=== PATIENT | female | born 1985 | race Caucasian/White ===

== ENCOUNTER 2016-06-22 14:52 | Emergency (ER) | payer OTHER ==
--- NOTE | 2016-06-22 15:51 | EDDOCDS ---
Physician Documentation [facility] Name: Nicole Cardona Age: 30 yrs Sex: Female : 1985 Arrival Date: 06/22/2016 Time: 14:52 Bed TR1 Private MD: NO PRIMARY PHYSICIAN, . Disposition: 06/22/16 15:43 Discharged to Home/Self Care. Impression: Low back pain. - Condition is Stable. - Discharge Instructions: Chronic Back Pain, Back Pain, Adult, [id number]. - Prescriptions for Robaxin- 750 750 mg Oral Tablet - take 1 tablet by ORAL route every 6 hours As needed; 40 tablet. etodolac 200 mg Oral Capsule - take 1 capsule by ORAL route 3 times per day; 30 capsule. - Medication Reconciliation, Local Pharmacy Hours, Work Release Form - 1 day form. - [facility]; When: Call to arrange an appointment; Reason: Further diagnostic work-up, Recheck today's complaints, Continuance of care, To establish care. - Problem is an acute exacerbation. - Symptoms are unchanged. Historical: - Allergies: no known allergies; - Home Meds: 1. none - PMHx: Depression; Heroine addict; - PSHx: Cesearean Section; - Social history: Smoking status: Patient states was never smoker of tobacco. No barriers to communication noted, The patient speaks fluent Trinidadian, Speaks appropriately for age. - Family history: Not pertinent. - : The pt / caregiver states he / she is not on anticoagulants. Home medication list is obtained from the patient. - Exposure Risk Screening:: None identified. 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 7 in. (170.18 cm) (R); 14:53 Body Mass Index 26.63 (77.11 kg, 170.18 cm) dd6 Signatures: Kelly Valderrama RN RN srm Wolfenden, Danny, PA PA btw Osbaldo, Cherelle, RN RN ttb MTDD
--- NOTE | 2016-06-22 15:51 | EDDOCDS ---
Nurse's Notes [facility] Name: Nicole Cardona Age: 30 yrs Sex: Female : 1985 Arrival Date: 06/22/2016 Time: 14:52 Bed TR1 Private MD: NO PRIMARY PHYSICIAN, . Diagnosis: Low back pain Presentation: 06/22 14:54 Presenting complaint: Patient states: twisted wrong last night and now having lower srm center back pain. pain also down right leg. no injury. Acute neurological deficits are not present. Mechanism of Injury: No Mechanism of Injury. Adult Sepsis Screening: The patient does not have new or worsening altered mentation. Patient's respiratory rate is less than 22. Systolic blood pressure is greater than 100. Patient has a qSOFA score of 0- Negative Sepsis Screen. Suicide/Homicide risk assessment- the patient denies having any suicidal and/or homicidal ideations and does not present with any other emotional, behavioral or mental health complaints. Status: Patient is not a director service or dependent. Transition of care: patient was not received from another setting of care. 14:54 Acuity: MONIQUE Level 4 srm 14:54 Method Of Arrival: Walkin/Carried/Asstd srm 14:56 Presenting complaint: Patient states: pt is 9 weeks . no vaginal bleeding. srm Triage Assessment: 14:56 General: Appears in no apparent distress, Behavior is appropriate for age, cooperative. srm Pain: Pain currently is 5 out of 10 on a pain scale. HIV screening NA for this visit Offered previously. Musculoskeletal: Reports low back pain that radiates down right leg. 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 none - PMHx: Depression; Heroine addict; - PSHx: Cesearean Section; - Social history: Smoking status: Patient states was never smoker of tobacco. No barriers to communication noted, The patient speaks fluent Urdu, Speaks appropriately for age. - Family history: Not pertinent. - : The pt / caregiver states he / she is not on anticoagulants. Home medication list is obtained from the patient. - Exposure Risk Screening:: None identified. Screenin:49 Screening information is obtained from the patient. Fall risk: No risks identified. ttb Assistance ADL's: requires no assistance with activities of daily living. Abuse/DV Screen: The patient / caregiver reports he/she is: not in a situation that causes fear, pain or injury. Nutritional screening: No deficits noted. Advance Directives: Currently, there is no health care proxy. home support is adequate. Assessment: 15:49 Adult Sepsis Screening: The patient does not have new or worsening altered mentation. ttb Patient's respiratory rate is less than 22. Systolic blood pressure is greater than 100. Patient has a qSOFA score of 0- Negative Sepsis Screen. General: Appears in no apparent distress, well nourished, well groomed, Behavior is appropriate for age, cooperative, pleasant. Pain: Location: lower back. Neurological: Level of Consciousness is awake, alert, Denies numbness. Cardiovascular: Chest pain is denied. Respiratory: No deficits noted. Airway is patent Respiratory effort is even, unlabored, Denies cough, shortness of breath. GI: Denies nausea, vomiting, pain. Derm: Skin is normal. Musculoskeletal: Range of motion intact in all extremities. Reports pain in lower back. Injury Description: No known injury. Vital Signs: 14:53 BP 123 / 66; Pulse 76; Resp 18 S; Temp 97.3(O); Pulse Ox 100% on R/A; Weight 77.11 kg; dd6 Height 5 ft. 7 in. (170.18 cm) (R); 14:53 Body Mass Index 26.63 (77.11 kg, 170.18 cm) dd6 Vitals: 14:53 Log In Time: June 22, 2016 at 14:51. dd6 ED Course: 14:52 Patient visited by Nawaf Alcala PCA. dd6 14:52 NO PRIMARY PHYSICIAN, . is Private Physician. dd6 14:52 Patient moved to Waiting dd6 14:53 Patient moved to Pre RCE dd6 14:55 Triage Initiated srm 15:10 Patient moved to Triage 3 ttb 15:30 Danny Davila PA is PHCP. btw 15:31 Eleni Gamboa MD is Attending Physician. btw 15:31 Patient visited by Danny Davila PA. btw 15:42 [facility] is Referral Physician. btw 15:48 Patient moved to TR1 ead 15:49 The patient / caregiver is instructed regarding the plan of care and ED course. Patient ttb has correct armband on for positive identification. 15:49 No IV's were initiated during this patient's visit. No procedures done that require ttb assistance. Order Results: There are currently no results for this order. Outcome: 15:43 Discharge ordered by Provider. btw 15:49 Discharge Assessment: Patient awake, alert and oriented x 3. No cognitive and/or ttb functional deficits noted. Patient verbalized understanding of disposition instructions. Patient awake and alert. patient administered narcotics - no. The following High Risk Discharge criteria are identified: None. Discharged to home ambulatory. Condition: good Condition: stable Condition: improved. Discharge instructions given to patient, Instructed on discharge instructions, follow up and referral plans. medication usage, Demonstrated understanding of instructions, medications, Pt was receptive of discharge instructions/ teaching. Prescriptions given X 2. No special radiology studies were completed. Property :Personal belongings accompany Pt. 15:51 Patient left the ED. ttb Signatures: Kelly Valderrama, RN RN Nawaf Guillaume, DISPLAYER MERCHANDISE DISPLAYER MERCHANDISE dd6 Danny Davila PA PA btw Conner, Teresa, RN RN ttAna Salazar RN RN ead MTDD
--- NOTE | 2016-06-24 16:51 | EDDOCDS ---
Physician Documentation [facility] Name: Nicole Cardona Age: 30 yrs Sex: Female : 1985 Arrival Date: 06/22/2016 Time: 14:52 Bed TR1 Private MD: NO PRIMARY PHYSICIAN, . Disposition: 06/22/16 15:43 Discharged to Home/Self Care. Impression: Low back pain. - Condition is Stable. - Discharge Instructions: Chronic Back Pain, Back Pain, Adult, [id number]. - Prescriptions for Robaxin- 750 750 mg Oral Tablet - take 1 tablet by ORAL route every 6 hours As needed; 40 tablet. etodolac 200 mg Oral Capsule - take 1 capsule by ORAL route 3 times per day; 30 capsule. - Medication Reconciliation, Local Pharmacy Hours, Work Release Form - 1 day form. - Follow up: [facility]; When: Call to arrange an appointment; Reason: Further diagnostic work-up, Recheck today's complaints, Continuance of care, To establish care. - Problem is an acute exacerbation. - Symptoms are unchanged. Historical: - Allergies: no known allergies; - Home Meds: 1. none - PMHx: Depression; Heroine addict; - PSHx: Cesearean Section; - Social history: Smoking status: Patient states was never smoker of tobacco. No barriers to communication noted, The patient speaks fluent Qatari, Speaks appropriately for age. - Family history: Not pertinent. - : The pt / caregiver states he / she is not on anticoagulants. Home medication list is obtained from the patient. - Exposure Risk Screening:: None identified. 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 7 in. (170.18 cm) (R); 14:53 Body Mass Index 26.63 (77.11 kg, 170.18 cm) dd6 MDM: 15:51 [facility] [place] Payment Agreement was scanned into [employer] and attached to record. [facility] 15:51 Financial registration complete. b 06/24 08:29 T-Sheet-- Draft Copy was scanned into [employer] and attached to record. gb Signatures: Kelly Valderrama, RN Helen Ariza, Kevin Reg gb Danny Davila PA PA btw Conner, Teresa, RN RN ttb Beck, Gabriela gjb The chart was reviewed and I authenticate all verbal orders and agree with the evaluation and treatment provided.Attachments: 06/22 15:51 [facility] [place] Payment Agreement gjb 06/24 08:29 T-Sheet-- Draft Copy gb Chart Complete MTDD
--- NOTE | 2016-06-24 16:51 | EDDOCDS ---
Physician Documentation [facility] Name: Nicole Cardona Age: 30 yrs Sex: Female : 1985 Arrival Date: 06/22/2016 Time: 14:52 Bed TR1 Private MD: NO PRIMARY PHYSICIAN, . Disposition: 06/22/16 15:43 Discharged to Home/Self Care. Impression: Low back pain. - Condition is Stable. - Discharge Instructions: Chronic Back Pain, Back Pain, Adult, [id number]. - Prescriptions for Robaxin- 750 750 mg Oral Tablet - take 1 tablet by ORAL route every 6 hours As needed; 40 tablet. etodolac 200 mg Oral Capsule - take 1 capsule by ORAL route 3 times per day; 30 capsule. - Medication Reconciliation, Local Pharmacy Hours, Work Release Form - 1 day form. - Follow up: [facility]; When: Call to arrange an appointment; Reason: Further diagnostic work-up, Recheck today's complaints, Continuance of care, To establish care. - Problem is an acute exacerbation. - Symptoms are unchanged. Historical: - Allergies: no known allergies; - Home Meds: 1. none - PMHx: Depression; Heroine addict; - PSHx: Cesearean Section; - Social history: Smoking status: Patient states was never smoker of tobacco. No barriers to communication noted, The patient speaks fluent Gabonese, Speaks appropriately for age. - Family history: Not pertinent. - : The pt / caregiver states he / she is not on anticoagulants. Home medication list is obtained from the patient. - Exposure Risk Screening:: None identified. 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 7 in. (170.18 cm) (R); 14:53 Body Mass Index 26.63 (77.11 kg, 170.18 cm) dd6 MDM: 15:51 [facility] [place] Payment Agreement was scanned into [employer] and attached to record. [facility] 15:51 Financial registration complete. b 06/24 08:29 T-Sheet-- Draft Copy was scanned into [employer] and attached to record. gb Signatures: Kelly Valderrama, RN Helen Ariza, Kevin Reg gb Danny Davila PA PA btw Conner, Teresa, RN RN ttb Beck, Gabriela gjb The chart was reviewed and I authenticate all verbal orders and agree with the evaluation and treatment provided.Attachments: 06/22 15:51 [facility] [facility] Payment Agreement gjb 06/24 08:29 T-Sheet-- Draft Copy gb Chart Complete MTDD
--- NOTE | 2016-06-24 16:52 | EDDOCDS ---
Nurse's Notes [facility] Name: Nicole Cardona Age: 30 yrs Sex: Female : 1985 Arrival Date: 06/22/2016 Time: 14:52 Bed TR1 Private MD: NO PRIMARY PHYSICIAN, . Diagnosis: Low back pain Presentation: 06/22 14:54 Presenting complaint: Patient states: twisted wrong last night and now having lower srm center back pain. pain also down right leg. no injury. Acute neurological deficits are not present. Mechanism of Injury: No Mechanism of Injury. Adult Sepsis Screening: The patient does not have new or worsening altered mentation. Patient's respiratory rate is less than 22. Systolic blood pressure is greater than 100. Patient has a qSOFA score of 0- Negative Sepsis Screen. Suicide/Homicide risk assessment- the patient denies having any suicidal and/or homicidal ideations and does not present with any other emotional, behavioral or mental health complaints. 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 Transition of care: patient was not received from another setting of care. 14:54 Acuity: MONIQUE Level 4 srm 14:54 Method Of Arrival: Walkin/Carried/Asstd srm 14:56 Presenting complaint: Patient states: pt is 9 weeks . no vaginal bleeding. srm Triage Assessment: 14:56 General: Appears in no apparent distress, Behavior is appropriate for age, cooperative. srm Pain: Pain currently is 5 out of 10 on a pain scale. HIV screening NA for this visit Offered previously. Musculoskeletal: Reports low back pain that radiates down right leg. 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 none - PMHx: Depression; Heroine addict; - PSHx: Cesearean Section; - Social history: Smoking status: Patient states was never smoker of tobacco. No barriers to communication noted, The patient speaks fluent Nepalese, Speaks appropriately for age. - Family history: Not pertinent. - : The pt / caregiver states he / she is not on anticoagulants. Home medication list is obtained from the patient. - Exposure Risk Screening:: None identified. Screenin:49 Screening information is obtained from the patient. Fall risk: No risks identified. ttb Assistance ADL's: requires no assistance with activities of daily living. Abuse/DV Screen: The patient / caregiver reports he/she is: not in a situation that causes fear, pain or injury. Nutritional screening: No deficits noted. Advance Directives: Currently, there is no health care proxy. home support is adequate. Assessment: 15:49 Adult Sepsis Screening: The patient does not have new or worsening altered mentation. ttb Patient's respiratory rate is less than 22. Systolic blood pressure is greater than 100. Patient has a qSOFA score of 0- Negative Sepsis Screen. General: Appears in no apparent distress, well nourished, well groomed, Behavior is appropriate for age, cooperative, pleasant. Pain: Location: lower back. Neurological: Level of Consciousness is awake, alert, Denies numbness. Cardiovascular: Chest pain is denied. Respiratory: No deficits noted. Airway is patent Respiratory effort is even, unlabored, Denies cough, shortness of breath. GI: Denies nausea, vomiting, pain. Derm: Skin is normal. Musculoskeletal: Range of motion intact in all extremities. Reports pain in lower back. Injury Description: No known injury. Vital Signs: 14:53 BP 123 / 66; Pulse 76; Resp 18 S; Temp 97.3(O); Pulse Ox 100% on R/A; Weight 77.11 kg; dd6 Height 5 ft. 7 in. (170.18 cm) (R); 14:53 Body Mass Index 26.63 (77.11 kg, 170.18 cm) dd6 Vitals: 14:53 Log In Time: June 22, 2016 at 14:51. dd6 ED Course: 14:52 Patient visited by Nawaf Alcala PCA. dd6 14:52 NO PRIMARY PHYSICIAN, . is Private Physician. dd6 14:52 Patient moved to Waiting dd6 14:53 Patient moved to Pre RCE dd6 14:55 Triage Initiated srm 15:10 Patient moved to Triage 3 ttb 15:30 Danny Davila PA is PHCP. btw 15:31 Eleni Gamboa MD is Attending Physician. btw 15:31 Patient visited by Danny Davila PA. btw 15:42 [facility] is Referral Physician. btw 15:48 Patient moved to TR1 ead 15:49 The patient / caregiver is instructed regarding the plan of care and ED course. Patient ttb has correct armband on for positive identification. 15:49 No IV's were initiated during this patient's visit. No procedures done that require ttb assistance. 15:51 [facility] Payment Agreement was scanned into [email or web address] and attached to record. gjb 06/24 08:29 T-Sheet-- Draft Copy was scanned into [email or web address] and attached to record. gb Order Results: There are currently no results for this order. Outcome: 06/22 15:43 Discharge ordered by Provider. btw 15:49 Discharge Assessment: Patient awake, alert and oriented x 3. No cognitive and/or ttb functional deficits noted. Patient verbalized understanding of disposition instructions. Patient awake and alert. patient administered narcotics - no. The following High Risk Discharge criteria are identified: None. Discharged to home ambulatory. Condition: good Condition: stable Condition: improved. Discharge instructions given to patient, Instructed on discharge instructions, follow up and referral plans. medication usage, Demonstrated understanding of instructions, medications, Pt was receptive of discharge instructions/ teaching. Prescriptions given X 2. No special radiology studies were completed. Property :Personal belongings accompany Pt. 15:51 Patient left the ED. ttb Signatures: Kelly Valderrama, RN RN [facility] Helen Howard, Kevin Reg Nawaf Back, HEALTHCARE MARKETER HEALTHCARE MARKETER dd6 Danny Davila PA PA btw Conner, Teresa, RN RN ttb Dunaway, Emily, RN RN ead Beck, Gabriela gjb Chart Complete MTDD
== END 2016-06-22 15:51 | disposition home or self-care (01) ==
LOC: M ED 14:52
DX: O99.89 Other specified diseases and conditions complicating pregnancy, childbirth and the puerperium (principal); M54.5 Low back pain; G89.29 Other chronic pain; O99.341 Other mental disorders complicating pregnancy, first trimester; F32.9 Major depressive disorder, single episode, unspecified; O99.321 Drug use complicating pregnancy, first trimester; F11.20 Opioid dependence, uncomplicated; O99.331 Smoking (tobacco) complicating pregnancy, first trimester; F17.210 Nicotine dependence, cigarettes, uncomplicated; Z3A.09 9 weeks gestation of pregnancy

== ENCOUNTER → 2016-07-01 | Outpatient (REF) | payer OTHER | LOC: M LAB REF 15:39 | PROVIDERS: ATTEND Obstetrics & Gynecology | DX: O34.211 Maternal care for low transverse scar from previous cesarean delivery (principal) ==

== ENCOUNTER 2016-07-11 19:49 | Emergency (ER) | payer OTHER ==
[2016-07-11] MEDS ORDERED: FLUORESCEIN OPHTH 1 MG STRIP As Ordered ONE (21:38)
[2016-07-11] MEDS ORDERED: ACETAMINOPHEN 325 MG TAB As Ordered ONE (21:38)
[2016-07-11] MEDS ORDERED: CIPROFLOXACIN 0.3% OPHTH SOLN 2.5ML As Ordered ONE (21:38)
[2016-07-11] MEDS ORDERED: TETRACAINE 0.5% OPHTH SOLN 4ML As Ordered ONE (21:38)
--- NOTE | 2016-07-11 22:33 | EDDOCDS ---
Nurse's Notes [facility] Name: Nicole Cardona Age: 30 yrs Sex: Female : 1985 Arrival Date: 07/11/2016 Time: 19:49 Bed I1 Private MD: Ricco Zuñiga J Diagnosis: Injury of conjunctiva and corneal abrasion without foreign body, right eye Presentation: 07/11 19:59 Presenting complaint: Patient states: that her R eye got scratched by a dog at work ms18 approx 2 days ago and it has just gotten worse. Pt states that she cannot open it now due to the light causing pain. Mechanism of Injury: dog. The patient reports a positive loss of vision. The patient's loss of vision began today. Adult Sepsis Screening: The patient does not have new or worsening altered mentation. Patient's respiratory rate is less than 22. Systolic blood pressure is greater than 100. Patient has a qSOFA score of 0- Negative Sepsis Screen. Suicide/Homicide risk assessment- the patient denies having any suicidal and/or homicidal ideations and does not present with any other emotional, behavioral or mental health complaints. 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 Transition of care: patient was not received from another setting of care. 19:59 Method Of Arrival: Walkin/Carried/Asstd ms18 19:59 Acuity: MONIQUE Level 3 ms18 Triage Assessment: 20:02 General: Appears in no apparent distress, comfortable, Behavior is appropriate for age, ms18 cooperative. Pain: Location: right eye Pain currently is 7 out of 10 on a pain scale. HIV screening NA for this visit Offered previously. Neurological: No deficits noted. EENT: Reports pain in right eye. Respiratory: Airway is patent Respiratory effort is even, unlabored. Derm: Skin is pink, warm & dry. Bruising that is dark purple, on right eye. 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 Vitamin Oral tab 1 tab once daily - PMHx: Depression; Heroine addict; Anxiety; - PSHx: ; - Social history: Smoking status: Patient uses tobacco products, current every day smoker. No barriers to communication noted, The patient speaks fluent Slovenian. - Family history: Not pertinent. - : The pt / caregiver states he / she is not on anticoagulants. Home medication list is obtained from the patient. - Exposure Risk Screening:: None identified. Screenin:28 Screening information is obtained from the patient. Fall risk: No risks identified. [facility] Assistance ADL's: requires no assistance with activities of daily living. Abuse/DV Screen: The patient / caregiver reports he/she is: not in a situation that causes fear, pain or injury. Nutritional screening: No deficits noted. Advance Directives: There is no active DNR order. home support is adequate. Assessment: 22:28 General: Appears in no apparent distress, comfortable, Behavior is appropriate for age, [facility] cooperative, pleasant, reviewed discharge instructions with patient, encouraged and answered questions, patient denies further needs at this time and declines offer of additional assistance with discharge. Work excuse obtained per patient request and verbal authorization of SHUKRI Ojeda. Vital Signs: 19:50 BP 107 / 63; Pulse 104; Resp 18 S; Temp 98.6; Pulse Ox 98% on R/A; Weight 73.48 kg (R); dd6 Height 5 ft. 7 in. (170.18 cm) (R); 19:50 Body Mass Index 25.37 (73.48 kg, 170.18 cm) dd6 Vitals: 19:50 Log In Time: July 11, 2016 at 19:48. dd6 Visual Acuity: 22:14 Right Eye Visual acuity 20/30, ; Both Eyes Visual acuity 20/30; Without Lenses; patient [facility] states she is legally blind in left eye and can not read eye chart at any level with that eye ED Course: 19:50 Patient visited by Nawaf Alcala PCA. dd6 19:50 Ricco Zuñiga is Private Physician. dd6 19:50 Patient moved to Waiting dd6 19:51 Patient moved to Pre RCE dd6 20:02 Triage Initiated ms18 20:55 Patient moved to Triage 2 ar3 21:10 Danish Sanford [facility] cc10 21:10 David Gage DO is Attending Physician. cc10 21:20 Patient visited by Danish Sanford PA-C. cc10 21:20 Patient visited by Danish Sanford PA-C. cc10 21:27 Patient moved to I10 / 23 [facility] 21:49 Ozzy Yepez is Referral Physician. cc 22:28 The patient / caregiver is instructed regarding the plan of care and ED course. [facility] 22:28 No IV's were initiated during this patient's visit. No procedures done that require [facility] assistance. Administered Medications: 21:45 Drug: Acetaminophen 975 mg [acetaminophen 325 mg tablet (3 tabs)] Route: PO; [facility] 22:10 Drug: Tetracaine (PF) 2 drps [tetracaine HCl (PF) 0.5 % eye drops (2 drps)] {Note: [facility] obtained for provider to administer.} Route: Ophthalmic; Site: right eye; 22:31 Drug: Ciprofloxacin 2 drps [ciprofloxacin 0.3 % eye drops (2 drps)] Route: Ophthalmic; [facility] Site: right eye; Order Results: There are currently no results for this order. Outcome: 21:50 Discharge ordered by Provider. cc 22:28 Discharge Assessment: Patient awake, alert and oriented x 3. No cognitive and/or [facility] functional deficits noted. Patient verbalized understanding of disposition instructions. patient administered narcotics - no. The following High Risk Discharge criteria are identified: None. Discharged to home ambulatory, with family. Condition: good Condition: stable Condition: improved. Discharge instructions given to patient, Instructed on discharge instructions, follow up and referral plans. medication usage, Demonstrated understanding of instructions, medications, Pt was receptive of discharge instructions/ teaching. Prescriptions given X 1. No special radiology studies were completed. Property :Personal belongings accompany Pt. 22:31 Patient left the ED. [facility] Signatures: Nawaf Alcala, RAYMOND MILL OPERATOR RAYMOND MILL OPERATOR dd6 Melly Foy, RAYMOND MILL OPERATOR RAYMOND MILL OPERATOR ar3 Lyly BellamyRN Kathryn Simmons RN RN [facility] Danish Sanford, PA-C PA-C cc10 Rosa Huber RN RN ms18 MTDD
--- NOTE | 2016-07-11 22:33 | EDDOCDS ---
Physician Documentation [facility] Name: Nicole Cardona Age: 30 yrs Sex: Female : 1985 Arrival Date: 07/11/2016 Time: 19:49 Bed I1 Private MD: Ricco Zuñiga J Disposition: 07/11/16 21:50 Discharged to Home/Self Care. Impression: Injury of conjunctiva and corneal abrasion without foreign body, right eye. - Condition is Stable. - Discharge Instructions: Corneal Abrasion. - Prescriptions for ciprofloxacin HCl 0.3 % Ophthalmic drops - instill 1 drop by OPHTHALMIC route every 4 hours for 5 days then 1 drop every 4 hrs while awake for 5 days; 1 bottle. - Medication Reconciliation form. - Follow up: Ozzy Yepez; When: Tomorrow; Reason: Wound/Symptom Recheck, Recheck today's complaints, Worsening of conditions, Continuance of care. - Problem is an ongoing problem. - Symptoms have improved. - Notes: Follow up with Dr. Yepez in the morning. thanks Historical: - Allergies: no known allergies; - Home Meds: 1. Vitamin Oral tab 1 tab once daily - PMHx: Depression; Heroine addict; Anxiety; - PSHx: ; - Social history: Smoking status: Patient uses tobacco products, current every day smoker. No barriers to communication noted, The patient speaks fluent Icelandic. - Family history: Not pertinent. - : The pt / caregiver states he / she is not on anticoagulants. Home medication list is obtained from the patient. - Exposure Risk Screening:: None identified. 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 7 in. (170.18 cm) (R); 19:50 Body Mass Index 25.37 (73.48 kg, 170.18 cm) dd6 Visual Acuity: 22:14 Right Eye Visual acuity 20/30, ; Both Eyes Visual acuity 20/30; Without Lenses; patient [facility] states she is legally blind in left eye and can not read eye chart at any level with that eye MDM: 21:24 Acetaminophen Tablet 975 mg PO once ordered. cc10 21:24 Ciprofloxacin Drops 0.3 % 2 drps Ophthalmic once; right eye ordered. cc10 21:24 Tetracaine (PF) Drops 0.5 % 2 drps Ophthalmic once; right eye ordered. cc10 21:24 Visual Acuity ordered. cc10 21:25 Flouroscein strips to bedside ordered. cc10 Administered Medications: 21:45 Drug: Acetaminophen 975 mg [acetaminophen 325 mg tablet (3 tabs)] Route: PO; [facility] 22:10 Drug: Tetracaine (PF) 2 drps [tetracaine HCl (PF) 0.5 % eye drops (2 drps)] {Note: [facility] obtained for provider to administer.} Route: Ophthalmic; Site: right eye; 22:31 Drug: Ciprofloxacin 2 drps [ciprofloxacin 0.3 % eye drops (2 drps)] Route: Ophthalmic; [facility] Site: right eye; Signatures: Kathryn Lindsay RN RN [facility] Danish Sanford PARashawnC PARashawnC cc Rosa Huber RN RN ms18 [facility]
--- NOTE | 2016-07-13 23:33 | EDDOCDS ---
Physician Documentation [facility] Name: Nicole Cardona Age: 30 yrs Sex: Female : 1985 Arrival Date: 07/11/2016 Time: 19:49 Bed I1 Private MD: Ricco Zuñiga J Disposition: 07/11/16 21:50 Discharged to Home/Self Care. Impression: Injury of conjunctiva and corneal abrasion without foreign body, right eye. - Condition is Stable. - Discharge Instructions: Corneal Abrasion. - Prescriptions for ciprofloxacin HCl 0.3 % Ophthalmic drops - instill 1 drop by OPHTHALMIC route every 4 hours for 5 days then 1 drop every 4 hrs while awake for 5 days; 1 bottle. - Medication Reconciliation form. - Follow up: Ozzy Yepez; When: Tomorrow; Reason: Wound/Symptom Recheck, Recheck today's complaints, Worsening of conditions, Continuance of care. - Problem is an ongoing problem. - Symptoms have improved. - Notes: Follow up with Dr. Yepez in the morning. thanks Historical: - Allergies: no known allergies; - Home Meds: 1. Vitamin Oral tab 1 tab once daily - PMHx: Depression; Heroine addict; Anxiety; - PSHx: ; - Social history: Smoking status: Patient uses tobacco products, current every day smoker. No barriers to communication noted, The patient speaks fluent Vietnamese. - Family history: Not pertinent. - : The pt / caregiver states he / she is not on anticoagulants. Home medication list is obtained from the patient. - Exposure Risk Screening:: None identified. 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 7 in. (170.18 cm) (R); 22:34 BP 104 / 63; Pulse 82; Resp 18; Temp 99.6; Pulse Ox 96% ; Pain 2/10; cjh 19:50 Body Mass Index 25.37 (73.48 kg, 170.18 cm) dd6 Visual Acuity: 22:14 Right Eye Visual acuity 20/30, ; Both Eyes Visual acuity 20/30; Without Lenses; patient [facility] states she is legally blind in left eye and can not read eye chart at any level with that eye MDM: 21:24 Acetaminophen Tablet 975 mg PO once ordered. cc10 21:24 Ciprofloxacin Drops 0.3 % 2 drps Ophthalmic once; right eye ordered. cc10 21:24 Tetracaine (PF) Drops 0.5 % 2 drps Ophthalmic once; right eye ordered. cc10 21:24 Visual Acuity ordered. cc10 21:25 Flouroscein strips to bedside ordered. [facility] 07/12 10:40 T-Sheet-- Draft Copy was scanned into [employer] and attached to record. Administered Medications: 07/11 21:45 Drug: Acetaminophen 975 mg [acetaminophen 325 mg tablet (3 tabs)] Route: PO; [facility] 22:10 Drug: Tetracaine (PF) 2 drps [tetracaine HCl (PF) 0.5 % eye drops (2 drps)] {Note: [facility] obtained for provider to administer.} Route: Ophthalmic; Site: right eye; 22:31 Drug: Ciprofloxacin 2 drps [ciprofloxacin 0.3 % eye drops (2 drps)] Route: Ophthalmic; [facility] Site: right eye; Signatures: Helen Howard, Reg Reg Kathryn Lindsay RN RN [facility] Danish Sanford PA-C PAJewel cc Rosa Huber RN RN ms18 The chart was reviewed and I authenticate all verbal orders and agree with the evaluation and treatment provided.Attachments: 07/12 10:40 T-Sheet-- Draft Copy Chart Complete MTDD
--- NOTE | 2016-07-13 23:33 | EDDOCDS ---
Physician Documentation [facility] Name: Nicole Cardona Age: 30 yrs Sex: Female : 1985 Arrival Date: 07/11/2016 Time: 19:49 Bed I1 Private MD: Ricco Zuñiga J Disposition: 07/11/16 21:50 Discharged to Home/Self Care. Impression: Injury of conjunctiva and corneal abrasion without foreign body, right eye. - Condition is Stable. - Discharge Instructions: Corneal Abrasion. - Prescriptions for ciprofloxacin HCl 0.3 % Ophthalmic drops - instill 1 drop by OPHTHALMIC route every 4 hours for 5 days then 1 drop every 4 hrs while awake for 5 days; 1 bottle. - Medication Reconciliation form. - Follow up: Ozzy Yepez; When: Tomorrow; Reason: Wound/Symptom Recheck, Recheck today's complaints, Worsening of conditions, Continuance of care. - Problem is an ongoing problem. - Symptoms have improved. - Notes: Follow up with Dr. Yepez in the morning. thanks Historical: - Allergies: no known allergies; - Home Meds: 1. Vitamin Oral tab 1 tab once daily - PMHx: Depression; Heroine addict; Anxiety; - PSHx: ; - Social history: Smoking status: Patient uses tobacco products, current every day smoker. No barriers to communication noted, The patient speaks fluent Yoruba. - Family history: Not pertinent. - : The pt / caregiver states he / she is not on anticoagulants. Home medication list is obtained from the patient. - Exposure Risk Screening:: None identified. 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 7 in. (170.18 cm) (R); 22:34 BP 104 / 63; Pulse 82; Resp 18; Temp 99.6; Pulse Ox 96% ; Pain 2/10; cjh 19:50 Body Mass Index 25.37 (73.48 kg, 170.18 cm) dd6 Visual Acuity: 22:14 Right Eye Visual acuity 20/30, ; Both Eyes Visual acuity 20/30; Without Lenses; patient [facility] states she is legally blind in left eye and can not read eye chart at any level with that eye MDM: 21:24 Acetaminophen Tablet 975 mg PO once ordered. cc10 21:24 Ciprofloxacin Drops 0.3 % 2 drps Ophthalmic once; right eye ordered. cc10 21:24 Tetracaine (PF) Drops 0.5 % 2 drps Ophthalmic once; right eye ordered. cc10 21:24 Visual Acuity ordered. cc10 21:25 Flouroscein strips to bedside ordered. [facility] 07/12 10:40 T-Sheet-- Draft Copy was scanned into [employer] and attached to record. Administered Medications: 07/11 21:45 Drug: Acetaminophen 975 mg [acetaminophen 325 mg tablet (3 tabs)] Route: PO; [facility] 22:10 Drug: Tetracaine (PF) 2 drps [tetracaine HCl (PF) 0.5 % eye drops (2 drps)] {Note: [facility] obtained for provider to administer.} Route: Ophthalmic; Site: right eye; 22:31 Drug: Ciprofloxacin 2 drps [ciprofloxacin 0.3 % eye drops (2 drps)] Route: Ophthalmic; [facility] Site: right eye; Signatures: Helen Howard, Reg Reg Kathryn Lindsay RN RN [facility] Danish Sanford PA-C PAJewel cc Rosa Huber RN RN ms18 The chart was reviewed and I authenticate all verbal orders and agree with the evaluation and treatment provided.Attachments: 07/12 10:40 T-Sheet-- Draft Copy Chart Complete MTDD
--- NOTE | 2016-07-13 23:33 | EDDOCDS ---
Nurse's Notes [facility] Name: Nicole Cardona Age: 30 yrs Sex: Female : 1985 Arrival Date: 07/11/2016 Time: 19:49 Bed I1 Private MD: Ricco Zuñiga J Diagnosis: Injury of conjunctiva and corneal abrasion without foreign body, right eye Presentation: 07/11 19:59 Presenting complaint: Patient states: that her R eye got scratched by a dog at work ms18 approx 2 days ago and it has just gotten worse. Pt states that she cannot open it now due to the light causing pain. Mechanism of Injury: dog. The patient reports a positive loss of vision. The patient's loss of vision began today. Adult Sepsis Screening: The patient does not have new or worsening altered mentation. Patient's respiratory rate is less than 22. Systolic blood pressure is greater than 100. Patient has a qSOFA score of 0- Negative Sepsis Screen. Suicide/Homicide risk assessment- the patient denies having any suicidal and/or homicidal ideations and does not present with any other emotional, behavioral or mental health complaints. 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 Transition of care: patient was not received from another setting of care. 19:59 Method Of Arrival: Walkin/Carried/Asstd ms18 19:59 Acuity: MONIQUE Level 3 ms18 Triage Assessment: 20:02 General: Appears in no apparent distress, comfortable, Behavior is appropriate for age, ms18 cooperative. Pain: Location: right eye Pain currently is 7 out of 10 on a pain scale. HIV screening NA for this visit Offered previously. Neurological: No deficits noted. EENT: Reports pain in right eye. Respiratory: Airway is patent Respiratory effort is even, unlabored. Derm: Skin is pink, warm & dry. Bruising that is dark purple, on right eye. 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 Vitamin Oral tab 1 tab once daily - PMHx: Depression; Heroine addict; Anxiety; - PSHx: ; - Social history: Smoking status: Patient uses tobacco products, current every day smoker. No barriers to communication noted, The patient speaks fluent Slovenian. - Family history: Not pertinent. - : The pt / caregiver states he / she is not on anticoagulants. Home medication list is obtained from the patient. - Exposure Risk Screening:: None identified. Screenin:28 Screening information is obtained from the patient. Fall risk: No risks identified. [facility] Assistance ADL's: requires no assistance with activities of daily living. Abuse/DV Screen: The patient / caregiver reports he/she is: not in a situation that causes fear, pain or injury. Nutritional screening: No deficits noted. Advance Directives: There is no active DNR order. home support is adequate. Assessment: 22:28 General: Appears in no apparent distress, comfortable, Behavior is appropriate for age, [facility] cooperative, pleasant, reviewed discharge instructions with patient, encouraged and answered questions, patient denies further needs at this time and declines offer of additional assistance with discharge. Work excuse obtained per patient request and verbal authorization of SHUKRI Ojeda. Vital Signs: 19:50 BP 107 / 63; Pulse 104; Resp 18 S; Temp 98.6; Pulse Ox 98% on R/A; Weight 73.48 kg (R); dd6 Height 5 ft. 7 in. (170.18 cm) (R); 22:34 BP 104 / 63; Pulse 82; Resp 18; Temp 99.6; Pulse Ox 96% ; Pain 2/10; [facility] 19:50 Body Mass Index 25.37 (73.48 kg, 170.18 cm) dd6 Vitals: 19:50 Log In Time: July 11, 2016 at 19:48. dd6 Visual Acuity: 22:14 Right Eye Visual acuity 20/30, ; Both Eyes Visual acuity 20/30; Without Lenses; patient [facility] states she is legally blind in left eye and can not read eye chart at any level with that eye ED Course: 19:50 Patient visited by Nawaf Alcala PCA. dd6 19:50 Ricco Zuñiga is Private Physician. dd6 19:50 Patient moved to Waiting dd6 19:51 Patient moved to Pre RCE dd6 20:02 Triage Initiated ms18 20:55 Patient moved to Triage 2 ar3 21:10 Danish Sanford [facility] cc10 21:10 David Gage DO is Attending Physician. cc10 21:20 Patient visited by Danish Sanford PA-C. cc10 21:20 Patient visited by Danish Sanford PA-C. cc10 21:27 Patient moved to I1 [facility] 21:49 Ozzy Yepez is Referral Physician. [facility] 22:28 The patient / caregiver is instructed regarding the plan of care and ED course. [facility] 22:28 No IV's were initiated during this patient's visit. No procedures done that require [facility] assistance. 07/12 10:40 T-Sheet-- Draft Copy was scanned into [employer] and attached to record. Administered Medications: 07/11 21:45 Drug: Acetaminophen 975 mg [acetaminophen 325 mg tablet (3 tabs)] Route: PO; [facility] 22:10 Drug: Tetracaine (PF) 2 drps [tetracaine HCl (PF) 0.5 % eye drops (2 drps)] {Note: [facility] obtained for provider to administer.} Route: Ophthalmic; Site: right eye; 22:31 Drug: Ciprofloxacin 2 drps [ciprofloxacin 0.3 % eye drops (2 drps)] Route: Ophthalmic; [facility] Site: right eye; Order Results: There are currently no results for this order. Outcome: 21:50 Discharge ordered by Provider. cc 22:28 Discharge Assessment: Patient awake, alert and oriented x 3. No cognitive and/or [facility] functional deficits noted. Patient verbalized understanding of disposition instructions. patient administered narcotics - no. The following High Risk Discharge criteria are identified: None. Discharged to home ambulatory, with family. Condition: good Condition: stable Condition: improved. Discharge instructions given to patient, Instructed on discharge instructions, follow up and referral plans. medication usage, Demonstrated understanding of instructions, medications, Pt was receptive of discharge instructions/ teaching. Prescriptions given X 1. No special radiology studies were completed. Property :Personal belongings accompany Pt. 22:31 Patient left the ED. [facility] Signatures: Helen Howard, Reg Reg gb Nawaf Alcala, PELT SALTER PELT SALTER dd6 Melly Foy, PELT SALTER PELT SALTER ar3 Lyly Bellamy,RN RN pml Kathryn Lindsay RN RN [facility] Danish Sanford PA-C PA-C cc10 Rosa Huber RN RN ms18 Chart Complete MTDD
== END 2016-07-11 22:31 | disposition home or self-care (01) ==
LOC: M ED 19:49
DX: S05.01XA Injury of conjunctiva and corneal abrasion without foreign body, right eye, initial encounter (principal); X58.XXXA Exposure to other specified factors, initial encounter; Y92.89 Other specified places as the place of occurrence of the external cause; Y93.K9 Activity, other involving animal care; Y99.0 Civilian activity done for income or pay; F32.9 Major depressive disorder, single episode, unspecified; F41.9 Anxiety disorder, unspecified; F11.10 Opioid abuse, uncomplicated; F17.200 Nicotine dependence, unspecified, uncomplicated; Z79.899 Other long term (current) drug therapy

== ENCOUNTER 2016-07-14 15:00 | Outpatient (RCR) | payer OTHER | END 2016-07-19 | LOC: M OUTALCOH 15:00 | PROVIDERS: ATTEND Psychiatry & Neurology Psychiatry | DX: F11.20 Opioid dependence, uncomplicated (principal) ==

== ENCOUNTER → 2016-07-26 | Outpatient (REF) | payer OTHER | LOC: M LAB REF 16:30 | PROVIDERS: ATTEND Obstetrics & Gynecology | DX: Z34.81 Encounter for supervision of other normal pregnancy, first trimester (principal) ==

== ENCOUNTER 2016-08-17 09:21 | Emergency (ER) | payer OTHER ==
[~2016-08-17] VITALS: Ht 170.2 cm; Wt 77.1 kg
[2016-08-17] MEDS ORDERED: PRENTAB16 PO (09:47)
[2016-08-17] MEDS ORDERED: ALBUTEROL SULFATE 2.5 MG/0.5 ML INH NEB SOLN INH ONE (10:45)
--- NOTE | 2016-08-17 12:39 | REP ---
Bilateral lower extremity Duplex Doppler venous ultrasound: Real time compression and duplex Doppler interrogation of the bilateral lower extremity deep venous system is performed. Bilaterally, the common femoral, superficial femoral and popliteal veins are fully compressible with transducer pressure and demonstrate normal spontaneous and phasic flow, without evidence of deep venous thrombosis. Impression: No evidence of deep venous thrombosis of the bilateral lower extremity femoral popliteal venous system. Signed by Lucio John MD 08/17/2016 12:30 P
[2016-08-17] MEDS ORDERED: ALBU17IN INH (12:54)
[2016-08-17] MEDS ORDERED: CEPH500T PO (12:54)
[2016-08-17 13:09] VITALS: BP 116/74
== END 2016-08-17 13:13 | disposition home or self-care (01) ==
LOC: M ED 09:21
DX: O99.89 Other specified diseases and conditions complicating pregnancy, childbirth and the puerperium (principal); J02.0 Streptococcal pharyngitis; J04.0 Acute laryngitis; J40 Bronchitis, not specified as acute or chronic; R25.2 Cramp and spasm; Z3A.17 17 weeks gestation of pregnancy; O99.332 Smoking (tobacco) complicating pregnancy, second trimester; Z79.899 Other long term (current) drug therapy

== ENCOUNTER 2016-09-17 07:37 | Emergency (ER) | payer OTHER ==
[~2016-09-17] VITALS: Ht 170.2 cm; Wt 77.1 kg
[~2016-09-17 07:37] MED LIST: ALBU17IN INH; CEPH500T PO; PRENTAB16 PO
[2016-09-17] MEDS ORDERED: ACETAMINOPHEN 325 MG TAB PO ONE (08:45)
--- NOTE | 2016-09-17 09:55 | REP ---
Clinical: Right upper extremity pain . Technique: John scale and color Doppler evaluation using linear high frequency transducer. Findings: Ultrasound examination of the right upper extremity deep venous structures including jugular, subclavian, axillary, brachial, cephalic and basilic veins demonstrate normal compressibility flow and wave patterns in response to respiration and augmentation. There is no evidence for deep venous thrombosis. Impression: No evidence for deep venous thrombosis of the right upper extremity. Signed by Ricco Truong MD 09/17/2016 09:48 A
[2016-09-17 10:01] VITALS: BP 117/69
== END 2016-09-17 10:02 | disposition home or self-care (01) ==
LOC: M ED 08:15
DX: O99.89 Other specified diseases and conditions complicating pregnancy, childbirth and the puerperium (principal); M75.21 Bicipital tendinitis, right shoulder; Z3A.21 21 weeks gestation of pregnancy; X50.1XXA Overexertion from prolonged static or awkward postures, initial encounter; Y92.89 Other specified places as the place of occurrence of the external cause; Y93.89 Activity, other specified; Y99.0 Civilian activity done for income or pay

== ENCOUNTER → 2016-11-09 | Outpatient (CLI) | payer OTHER ==
[2016-11-09 09:47] LABS: MEAN CORPUSCULAR VOLUME 79.5 fl (80.0-96.0); RED CELL DISTRIBUTION WIDTH 13.7 % (11.5-14.5); WHITE BLOOD COUNT 6.3 K/mm3 (4.0-10.0)
== END ==
LOC: M LAB 08:26
PROVIDERS: ATTEND Advanced Practice Midwife
DX: Z34.82 Encounter for supervision of other normal pregnancy, second trimester (principal)

== ENCOUNTER → 2016-12-08 | Outpatient (REF) | payer OTHER | LOC: M LAB REF 13:07 | PROVIDERS: ATTEND Obstetrics & Gynecology | DX: Z3A.33 33 weeks gestation of pregnancy (principal) ==

== ENCOUNTER → 2016-12-22 | Outpatient (REF) | payer OTHER ==
[~2016-12-22] MED LIST changes: +ACET50TA PO; +ZITHTAB PO
== END ==
LOC: M LAB REF 12:22
PROVIDERS: ATTEND Obstetrics & Gynecology
DX: Z34.83 Encounter for supervision of other normal pregnancy, third trimester (principal); Z3A.33 33 weeks gestation of pregnancy

== ENCOUNTER 2016-12-25 17:51 | Outpatient (CLI) | payer OTHER ==
[~2016-12-25] VITALS: Ht 170.2 cm; Wt 89.0 kg
[~2016-12-25 17:51] MED LIST changes: -ACET50TA PO; -ZITHTAB PO
[2016-12-25] MEDS ORDERED: ACET50TA PO (18:03)
[2016-12-25 18:09] VITALS: BP 111/72
[2017-04-24] MEDS ORDERED: ZITHTAB PO (20:22)
== END 2016-12-25 18:50 | disposition home or self-care (01) ==
LOC: M LDO 17:51
PROVIDERS: ATTEND Advanced Practice Midwife
DX: O99.353 Diseases of the nervous system complicating pregnancy, third trimester (principal); G89.29 Other chronic pain; O26.893 Other specified pregnancy related conditions, third trimester; M54.5 Low back pain; Z3A.35 35 weeks gestation of pregnancy; O34.219 Maternal care for unspecified type scar from previous cesarean delivery; O99.323 Drug use complicating pregnancy, third trimester; F19.21 Other psychoactive substance dependence, in remission

== ENCOUNTER 2017-01-17 05:36 | Inpatient (IN) | payer OTHER ==
[~2017-01-17] VITALS: Ht 170.2 cm; Wt 89.4 kg
[2017-01-17] VITALS (7 sets, daily range): BP systolic 98–136; BP diastolic 54–79
[~2017-01-17 05:36] MED LIST changes: +ACET50TA PO
[2017-01-17 06:14] LABS: MEAN CORPUSCULAR HEMOGLOBIN 24.6 pg (27.0-33.0); MEAN CORPUSCULAR HGB CONC 33.8 g/dl (32.0-36.5); MEAN CORPUSCULAR VOLUME 72.9 fl (80.0-96.0); RED CELL DISTRIBUTION WIDTH 14.2 % (11.5-14.5); WHITE BLOOD COUNT 7.6 K/mm3 (4.0-10.0)
[2017-01-17] MEDS ORDERED: LR 1,000 ML IV SCH ×2 (07:00→08:42)
[2017-01-17] MEDS ORDERED: LR 800 ML IV ONE (07:00)
[2017-01-17] MEDS ORDERED: BICITRA 30ML SOLN UDC PO ONE (07:00)
[2017-01-17] MEDS ORDERED: OXYTOCIN INJ 10 UNITS/ML VIAL (J2590) As Ordered ONE ×2 (07:17→08:41)
[2017-01-17] MEDS ORDERED: MORPHINE PRES-FREE INJ 10 MG/10 ML VIAL (J2274) As Ordered ONE (07:23)
[2017-01-17] MEDS ORDERED: MIDAZOLAM INJ 2 MG/2 ML VIAL (J2250) As Ordered ONE ×2 (07:32→08:14)
[2017-01-17] MEDS ORDERED: ONDANSETRON 4MG/2ML VIAL (J2405) IV PRN ×3 (07:48→09:15)
[2017-01-17] MEDS ORDERED: NALBUPHINE HCL 10 MG/ML AMP (J2300) IV PRN ×2 (07:48→09:15)
[2017-01-17] MEDS ORDERED: METOCLOPRAMIDE INJ 10MG/2ML VIAL (J2765) IV PRN (07:48)
[2017-01-17] MEDS ORDERED: NALOXONE INJ 0.4 MG/1 ML VIAL (J2310) IV PRN ×2 (07:48)
[2017-01-17] MEDS ORDERED: fentaNYL 100 MCG/2 ML INJECTION (J3010) As Ordered ONE (08:09)
[2017-01-17] MEDS ORDERED: KETAMINE HCL 200 MG/20 ML VIAL As Ordered ONE (08:11)
[2017-01-17] MEDS ORDERED: PHENYLephrine HCL 500 MCG/5 ML (100MCG/ML) SYRINGE (J2370) As Ordered ONE (08:21)
[2017-01-17 08:25] LABS: CORD GAS ABE A -3.1; CORD GAS HCO3 A 23.4 MEQ/L; CORD GAS O2 SAT A 28.9 %; CORD GAS PCO2 A 47.7 mmHg; CORD GAS PH A 7.309 UNITS; CORD GAS PO2 A 16.2 mmHg; CORD GAS SBC A 20.4 MEQ/L; CORD GAS TCO2 A 24.9 MEQ/L
[2017-01-17 08:26] LABS: CORD GAS ABE V -0.4; CORD GAS HCO3 V 24.7 MEQ/L; CORD GAS O2 SAT V 65.3 %; CORD GAS PCO2 V 42.5 mmHg; CORD GAS PH V 7.383 UNITS; CORD GAS PO2 V 26.4 mmHg; CORD GAS SBC V 23.4 MEQ/L; CORD GAS TCO2 V 26.1 MEQ/L
[2017-01-17] MEDS ORDERED: METHYLERGONOVINE MALEATE 0.2 MG/ML VIAL (J2210) As Ordered ONE (08:34)
[2017-01-17] MEDS ORDERED: dexameTHASONE 4 MG/ML 1ML VIAL (J1100) As Ordered ONE (08:41)
[2017-01-17] MEDS ORDERED: ONDANSETRON 4MG/2ML VIAL (J2405) As Ordered ONE ×2 (08:42→08:44)
[2017-01-17] MEDS ORDERED: MEASLES,MUMPS,RUBELLA VACCINE INJ (MMR-II) (90707) SC SCH (08:45)
[2017-01-17] MEDS ORDERED: RHOGAM 300 MCG (1500 IU) INJ (J2790) IM SCH (08:45)
[2017-01-17] MEDS ORDERED: METHYLERGONOVINE MALEATE 0.2 MG TAB PO PRN (08:45)
[2017-01-17] MEDS ORDERED: MOM 30ML SUSPENSION UDC PO PRN (08:45)
[2017-01-17] MEDS ORDERED: KETOROLAC 30 MG/ML VIAL (J1885) IV SCH (09:00)
[2017-01-17] MEDS ORDERED: METHYLERGONOVINE MALEATE 0.2 MG/ML VIAL (J2210) IM ONE (09:00)
[2017-01-17] MEDS ORDERED: fentaNYL 100 MCG/2 ML INJECTION (J3010) IV PRN (09:15)
[2017-01-17] MEDS: DOCUSATE SODIUM 100 MG CAP PO SCH ×2 (11:17→21:17)
[2017-01-17] MEDS: PRENATAL VITAMINS CHEWABLE TABLET PO SCH (11:17)
[2017-01-17] MEDS: KETOROLAC 30 MG/ML VIAL (J1885) IV SCH ×2 (18:48→23:18)
[2017-01-18 02:23] VITALS: BP 112/77
[2017-01-18] MEDS: KETOROLAC 30 MG/ML VIAL (J1885) IV SCH (05:27)
[2017-01-18 06:38] VITALS: BP 98/57
[2017-01-18 08:03] LABS: MEAN CORPUSCULAR HEMOGLOBIN 24.4 pg (27.0-33.0); MEAN CORPUSCULAR HGB CONC 33.1 g/dl (32.0-36.5); MEAN CORPUSCULAR VOLUME 73.8 fl (80.0-96.0); RED CELL DISTRIBUTION WIDTH 14.2 % (11.5-14.5); WHITE BLOOD COUNT 8.2 K/mm3 (4.0-10.0)
[2017-01-18] MEDS: PRENATAL VITAMINS CHEWABLE TABLET PO SCH (09:00)
[2017-01-18] MEDS: DOCUSATE SODIUM 100 MG CAP PO SCH ×2 (09:00→20:18)
[2017-01-18 10:04] VITALS: BP 110/57
[2017-01-18] MEDS: IBUPROFEN 800 MG TAB PO SCH ×2 (14:42→20:18)
[2017-01-18] MEDS: ACETAMINOPHEN TAB 650MG DOSE (2X325MG) PO PRN (17:37)
[2017-01-18 18:00] VITALS: BP 129/59
--- NOTE | 2017-01-18 22:33 | HPE ---
DATE OF ADMISSION: 01/17/2017 is a 31-year-old female 5, para 2-0-2-2 with a history of two prior sections who is being admitted for elective repeat section at term. The patient also desires permanent tubal sterilization. Her record reviewed, which was essentially unremarkable. She initiated care with us at [facility] at approximately 30 of gestation. Her course unremarkable. lab: Blood type is . Rubella immune, hepatitis negative, HIV negative, GC chlamydia negative, 1-hour sugar testing was within normal limit. Her GBS was negative. PAST MEDICAL HISTORY: Significant for chronic back pain, migraines. PAST SURGICAL HISTORY: section x2 SOCIAL HISTORY: Denies any alcohol or drugs. The patient is an ex drug abuser; was addicted to pain pills and has been clean for the last couple of years. She is a former smoker. FAMILY HISTORY: Significant for lupus. PHYSICAL EXAMINATION ON ADMISSION: HEENT: Grossly within normal limits. Abdomen: Soft, nontender, nondistended. Extremities: No clubbing, cyanosis or edema. Vaginal exam deferred. Tracing reviewed. Category one tracing. ASSESSMENT: 1. Intrauterine at 39 weeks gestation with a history of two prior sections being admitted for elective repeat section. 2. Multiparity, desires permanent tubal sterilization. PLAN: Admit to labor and delivery. Awaiting OR for repeat section. JACINTA
[2017-01-19 04:39] VITALS: BP 101/60
[2017-01-19] MEDS: IBUPROFEN 800 MG TAB PO SCH ×3 (06:01→20:18)
[2017-01-19] MEDS: DOCUSATE SODIUM 100 MG CAP PO SCH ×2 (08:42→20:18)
[2017-01-19] MEDS: PRENATAL VITAMINS CHEWABLE TABLET PO SCH (08:42)
[2017-01-19] MEDS: ACETAMINOPHEN TAB 650MG DOSE (2X325MG) PO PRN ×3 (08:51→23:58)
--- NOTE | 2017-01-19 10:08 | RO ---
DATE OF PROCEDURE: 01/18/2017 PREOPERATIVE DIAGNOSES: 1. Term for elective repeat section. 2. Desires permanent tubal sterilization. POSTOPERATIVE DIAGNOSES: 1. Term for elective repeat section. 2. Desires permanent tubal sterilization. PROCEDURE: 1. Repeat section. 2. Bilateral tubal ligation using Filshie clip. 3. Revision of old scar. SURGEON: Dr. Aron Luo SANDBLAST OR SHOTBLAST EQUIPMENT TENDER: Lore Merrill ANESTHESIA: Spinal. COMPLICATIONS: None. ESTIMATED BLOOD LOSS: 700 mL. FINDINGS: Live female infant in occiput transverse position. 9 and 9. weight 7 pounds 10 ounces. Normal-appearing tubes and ovaries. is a 31-year-old female, 5, para 2-0-2-2, who was admitted at 39 weeks gestation for elective repeat section. The patient was extensively counseled before being taken to the operating room. PROCEDURE: After obtaining informed consent the patient was taken to the operating room where spinal anesthetic was found to be adequate. She was then draped and prepped in usual sterile fashion in the supine position. At this point, an elliptical incision was made over her old scar. This was carried down to the fascia. The fascia was incised in midline fashion. Dissection of the peritoneum was done. At this point, a Mobius skin retractor was placed. A low-transverse uterine incision was made. was delivered in atraumatic fashion. Nose and mouth bulb suctioned. Cord doubly clamped and cut. was handed over to the waiting warmer. Cord blood and cord gas was sent. Placenta removed manually. Uterus cleared of all clot and debris. The uterine incision was then repaired in two separate layers of #0 Vicryl suture. After closing of the uterus, a little excessive bleeding was noted. A dose of Methergine was given intraoperatively as well as Pitocin. The attention was then turned to the fallopian tubes where a Filshie clip was applied 2-3 cm away from the cornual area in each tube. The pelvis copiously irrigated with normal saline and suctioned out. Attention turned to the peritoneum which was closed in running fashion using #2-0 Vicryl. Fascia closed in two separate segments of #0 Vicryl sutures. The skin was reapproximated in subcuticular fashion using #3-0 Vicryl on a Crow. Steri-Strips placed. The patient tolerated procedure well. She was then transferred to recovery room in stable condition.
[2017-01-19 18:03] VITALS: BP 123/67
[2017-01-20] MEDS: IBUPROFEN 800 MG TAB PO SCH (04:20)
[2017-01-20 06:00] VITALS: BP 113/67
[2017-01-20] MEDS: DOCUSATE SODIUM 100 MG CAP PO SCH (08:22)
[2017-01-20] MEDS: PRENATAL VITAMINS CHEWABLE TABLET PO SCH (08:23)
[2017-01-20] MEDS: ACETAMINOPHEN TAB 650MG DOSE (2X325MG) PO PRN (08:24)
--- NOTE | 2017-01-26 14:03 | DS.PDOC ---
Discharge Summary General Date of Admission Jan 17, 2017 at 05:36 Date of Discharge January 20, 2017 Attending Physician: Aron Luo DO Discharge Summary PROCEDURES PERFORMED DURING STAY: Repeat section with bilateral tubal ligation. ADMITTING DIAGNOSES: 1. IUP at 39 weeks gestation 2. Prior section x2 with desire for a repeat section 3. Multiparity with desire for permanent tubal sterilization DISCHARGE DIAGNOSES: 1. Day 3 postoperative COMPLICATIONS/CHIEF COMPLAINT: Hx Section, Req Permanent Sterilization. HISTORY OF PRESENT ILLNESS: Patient is a 31 year old female who is a at 39 weeks gestation with an BRAYAN of 01/24/17. She presents to L&D for a scheduled section, elective. She also desires permanent sterilization. Her care has been uncomplicated. She has a history of drug abuse-opioids and completed treatment programs. She has been clean for over a year. DISCHARGE MEDICATIONS: Please see below. ALLERGIES: Please see below. PHYSICAL EXAMINATION ON DISCHARGE: VITAL SIGNS: Please see below. GENERAL: Alert and attentive. RESPIRATORY EXAMINATION: regular rate. No use of accessory muscles. ABDOMINAL EXAMINATION: Low transverse incision is intact without erythema or drainage. Edges approximated. EXTREMITIES: generalized edema bilateral lower extremities NEUROLOGICAL EXAMINATION: A+Ox3 LABORATORY DATA: Please see below. ACTIVITY: As tolerated and pelvic rest DIET: Regular DISPOSITION: 01 Home, Self-Care. DISCHARGE INSTRUCTIONS: 1. Discharge to home. 2. Follow up in 2 weeks for incision check and 6 weeks for visit. 3. Education done on signs and symptoms of mastitis, endometritis, hemorrhage, DVT, pulmonary embolism, care of incision, signs of infection of incision, pelvic rest, pain management, depression and psychosis, alecia care, and breast care. Patient educated and given a sheet on instructions. DISCHARGE CONDITION: Stable. Vital Signs/I&Os Vital Signs Date Time Temp Pulse Resp B/P (MAP) Pulse Ox O2 Delivery O2 Flow Rate FiO2 01/20/17 06:00 97.0 54 18 113/67 (82) 98 Room Air Discharge Medications Scheduled Multivitamins/ ( Complete 14-0.4 mg) 1 Tab Tab, 1 TAB PO DAILY, (Reported) Scheduled PRN Acetaminophen (Mapap) 500 Mg Tab, 650 MG PO for PAIN SCALE 1-5, (Reported) Allergies Coded Allergies: No Known Allergies (Unverified , 08/17/16) MARIANGEL TURNER CNM Jan 26, 2017 14:02
[2017-04-24] MEDS ORDERED: ZITHTAB PO (20:22)
== END 2017-01-20 11:40 | disposition home or self-care (01) | DRG 540 ==
LOC: M LDI 05:36 → M OBS 10:29
PROVIDERS: ADMIT Obstetrics & Gynecology; ATTEND Obstetrics & Gynecology
PROC: 10D00Z1 Extraction of Products of Conception, Low, Open Approach (ICD-10-PCS; principal; 2017-01-18)
PROC: 0UL70DZ Occlusion of Bilateral Fallopian Tubes with Intraluminal Device, Open Approach (ICD-10-PCS; 2017-01-18)
DX: O34.211 Maternal care for low transverse scar from previous cesarean delivery (principal); Z3A.39 39 weeks gestation of pregnancy; Z37.0 Single live birth; Z30.2 Encounter for sterilization

== ENCOUNTER 2017-03-02 18:43 | Emergency (ER) | payer OTHER ==
[~2017-03-02] VITALS: Ht 170.2 cm; Wt 86.4 kg
[2017-03-02 18:43] VITALS: BP 105/57
[2017-04-24] MEDS ORDERED: ZITHTAB PO (20:22)
== END 2017-03-02 21:49 | disposition left against medical advice (07) ==
LOC: M ED 18:43
DX: R11.10 Vomiting, unspecified (principal); Z53.21 Procedure and treatment not carried out due to patient leaving prior to being seen by health care provider

== ENCOUNTER 2017-08-17 12:25 | Emergency (ER) | payer OTHER ==
[2017-08-17 15:36] LABS: BASO % 0.6 % (0.0-1.0); EOS % 0.4 % (0.0-3.0); HEMATOCRIT 35.9 % (36.0-47.0); HEMOGLOBIN 11.3 g/dl (12.0-16.0); IMMATURE GRANULOCYTE % 0.2 % (0-3.0); LYMPH # 1.8 10^3/uL (1.5-4.5); LYMPH % 35.9 % (24.0-44.0); MEAN CORPUSCULAR HEMOGLOBIN 23.3 pg (27.0-33.0); MEAN CORPUSCULAR HGB CONC 31.5 g/dl (32.0-36.5); MONO # 0.3 10^3/uL (0.0-0.8); MONO % 6.2 % (0.0-5.0); NEUTROPHILS # 2.8 10^3/uL (1.8-7.7); NEUTROPHILS % 56.7 % (36.0-66.0); PLATELET COUNT, AUTOMATED 264 10^3/uL (150-450); RED BLOOD COUNT 4.85 10^6/uL (4.00-5.40); RED CELL DISTRIBUTION WIDTH 17.8 % (11.5-14.5)
[2017-08-17 15:51] LABS: CONTROL LINE HCG INT CTR LINE PRESENT; HCG, SERUM QUALITATIVE NEGATIVE (NEGATIVE)
[2017-08-17 16:03] LABS: ALBUMIN 4.1 GM/DL (3.2-5.2); ALBUMIN/GLOBULIN RATIO 1.28 (1.00-1.93); ALKALINE PHOSPHATASE 70 U/L (45-117); ALT/SGPT 23 U/L (12-78); ANION GAP 5 MEQ/L (8-16); AST/SGOT 16 U/L (7-37); BILIRUBIN,TOTAL 0.6 MG/DL (0.2-1.0); BLOOD UREA NITROGEN 14 MG/DL (7-18); CALCIUM LEVEL 8.9 MG/DL (8.5-10.1); CARBON DIOXIDE LEVEL 28 MEQ/L (21-32); CHLORIDE LEVEL 107 MEQ/L (98-107); CREATININE FOR GFR 0.96 MG/DL (0.55-1.30); GLOMERULAR FILTRATION RATE > 60.0 (>60); GLUCOSE, FASTING 133 MG/DL (70-100); POTASSIUM SERUM 4.2 MEQ/L (3.5-5.1); SODIUM LEVEL 140 MEQ/L (136-145); TOTAL PROTEIN 7.3 GM/DL (6.4-8.2)
[2017-08-17 16:49] LABS: CONTROL LINE INT CTR LINE PRESENT; HIV EXPOSED PT 1 NEGATIVE (NEGATIVE); HIVEXPOSED0 NEGATIVE (NEGATIVE)
[2017-08-17] MEDS: EXPOSURE KIT-ADULT 7 DAY SUPPLY PO (17:51)
[2017-08-17] MEDS: [UNRECOGNIZED DRUG - OTHER] IM (17:51)
[2017-08-17] MEDS: HEPATITIS B IMMUNE GLOBULIN 5ML INJ (J1571) IM (17:52)
[2017-08-18 10:58] LABS: HEPATITIS B SURFACE ANTIBODY NEGATIVE (POSITIVE)
[2017-08-18 11:06] LABS: HEPATITIS B SURFACE ANTIGEN NEGATIVE (NEGATIVE)
== END 2017-08-17 17:54 | disposition home or self-care (01) ==
LOC: M ED 12:25
DX: S61.239A Puncture wound without foreign body of unspecified finger without damage to nail, initial encounter (principal); W46.1XXA Contact with contaminated hypodermic needle, initial encounter; Y92.89 Other specified places as the place of occurrence of the external cause
CPT/HCPCS: 90744

== ENCOUNTER 2017-09-15 14:30 | Emergency (ER) | payer OTHER ==
[2017-09-15] MEDS: NS 1,000 ML IV (15:55)
[2017-09-15] MEDS: METOCLOPRAMIDE INJ 10MG/2ML VIAL (J2765) IV (15:55)
[2017-09-15 16:07] LABS: RED BLOOD COUNT 4.78 10^6/uL (4.00-5.40); WHITE BLOOD COUNT 5.2 10^3/uL (4.0-10.0)
[2017-09-15 16:08] LABS: BASO % 0.4 % (0.0-1.0); EOS % 0.6 % (0.0-3.0); HEMATOCRIT 36.7 % (36.0-47.0); HEMOGLOBIN 11.7 g/dl (12.0-15.5); IMMATURE GRANULOCYTE % 0.6 % (0-3.0); LYMPH # 1.6 10^3/uL (1.5-4.5); LYMPH % 30.4 % (24.0-44.0); MEAN CORPUSCULAR HEMOGLOBIN 24.5 pg (27.0-33.0); MEAN CORPUSCULAR HGB CONC 31.9 g/dl (32.0-36.5); MEAN CORPUSCULAR VOLUME 76.8 fl (80.0-96.0); MONO # 0.4 10^3/uL (0.0-0.8); MONO % 6.7 % (0.0-5.0); NEUTROPHILS # 3.2 10^3/uL (1.8-7.7); NEUTROPHILS % 61.3 % (36.0-66.0); PLATELET COUNT, AUTOMATED 263 10^3/uL (150-450); RED CELL DISTRIBUTION WIDTH 15.9 % (11.5-14.5)
[2017-09-15 16:26] LABS: ALBUMIN 4.1 GM/DL (3.2-5.2); ALBUMIN/GLOBULIN RATIO 1.28 (1.00-1.93); ALKALINE PHOSPHATASE 67 U/L (45-117); ALT/SGPT 21 U/L (12-78); ANION GAP 6 MEQ/L (8-16); AST/SGOT 18 U/L (7-37); BILIRUBIN,TOTAL 0.4 MG/DL (0.2-1.0); BLOOD UREA NITROGEN 17 MG/DL (7-18); CALCIUM LEVEL 9.2 MG/DL (8.5-10.1); CARBON DIOXIDE LEVEL 27 MEQ/L (21-32); CHLORIDE LEVEL 106 MEQ/L (98-107); CREATININE FOR GFR 0.94 MG/DL (0.55-1.30); GLOMERULAR FILTRATION RATE > 60.0 (>60); GLUCOSE, FASTING 79 MG/DL (70-100); POTASSIUM SERUM 3.8 MEQ/L (3.5-5.1); SODIUM LEVEL 139 MEQ/L (136-145); TOTAL PROTEIN 7.3 GM/DL (6.4-8.2)
== END 2017-09-15 17:18 | disposition home or self-care (01) ==
LOC: M ED 14:30
DX: R55 Syncope and collapse (principal); F17.200 Nicotine dependence, unspecified, uncomplicated; Z79.899 Other long term (current) drug therapy
CPT/HCPCS: J2765

== ENCOUNTER → 2018-09-05 | Outpatient (REF) | payer MEDICAID, OTHER ==
[~2018-09-05] MED LIST changes: -ACET50TA PO; +MAPA500T2 PO; +RALT40TA PO; +TRUVTAB PO; +ZITHTAB PO; +ZOFR4TAB14 PO
[2018-09-05 17:47] LABS: INFLUENZA A AMPLIFICATION NEGATIVE (NEGATIVE); INFLUENZA B AMPLIFICATION NEGATIVE (NEGATIVE)
== END ==
LOC: M LAB REF 16:59
PROVIDERS: ATTEND Physician Assistant
DX: J11.1 Influenza due to unidentified influenza virus with other respiratory manifestations (principal)

== ENCOUNTER 2018-09-30 12:32 | Emergency (ER) | payer MEDICAID, OTHER ==
[~2018-09-30] VITALS: Ht 170.2 cm; Wt 72.7 kg
[2018-09-30] MEDS ORDERED: ESCI10TA2 PO (12:36)
[2018-09-30 13:10] LABS: BASO # 0.1 10^3/uL (0.0-0.2); BASO % 0.7 % (0.0-1.0); EOS % 0.3 % (0.0-3.0); HEMATOCRIT 37.7 % (36.0-47.0); HEMOGLOBIN 12.5 g/dl (12.0-15.5); LYMPH # 1.7 10^3/uL (1.5-4.5); LYMPH % 22.9 % (24.0-44.0); MEAN CORPUSCULAR HEMOGLOBIN 26.1 pg (27.0-33.0); MEAN CORPUSCULAR HGB CONC 33.2 g/dl (32.0-36.5); MEAN CORPUSCULAR VOLUME 78.7 fl (80.0-96.0); MONO # 0.5 10^3/uL (0.0-0.8); MONO % 6.9 % (0.0-5.0); NEUTROPHILS % 68.9 % (36.0-66.0); PLATELET COUNT, AUTOMATED 217 10^3/uL (150-450); RED BLOOD COUNT 4.79 10^6/uL (4.00-5.40); WHITE BLOOD COUNT 7.3 10^3/uL (4.0-10.0)
[2018-09-30 13:28] LABS: ERYTHROCYTE SEDIMENTATION RATE 3 mm/hr (0-20)
[2018-09-30 14:13] LABS: ACETAMINOPHEN LEVEL 2.6 UG/ML (10.0-30.0); ALT/SGPT 25 U/L (12-78); AMPHETAMINES LEVEL URINE POSITIVE (NEGATIVE); BARBITURATES URINE NEGATIVE (NEGATIVE); BENZODIAZEPINES URINE NEGATIVE (NEGATIVE); BILIRUBIN,DIRECT 0.1 MG/DL (0.0-0.2); BILIRUBIN,TOTAL 0.5 MG/DL (0.2-1.0); BLOOD UREA NITROGEN 13 MG/DL (7-18); C REACTIVE PROTEIN QUANTITATIV < 0.30 MG/DL (0.00-0.30); CALCIUM LEVEL 8.2 MG/DL (8.5-10.1); CANNABINOIDS URINE NEGATIVE (NEGATIVE); CARBON DIOXIDE LEVEL 26 MEQ/L (21-32); CHLORIDE LEVEL 107 MEQ/L (98-107); COCAINE METABOLITE URINE NEGATIVE (NEGATIVE); CPK CREATINE PHOSPHOKINASE 156 U/L (26-192); CREATININE FOR GFR 0.84 MG/DL (0.55-1.30); ETHYL ALCOHOL (ETHANOL) < 0.003 % (0.000-0.010); GLOMERULAR FILTRATION RATE > 60.0 (>60); GLUCOSE, FASTING 74 MG/DL (70-100); MB/CK RELATIVE INDEX 0.96 (< OR =4); METHADONE URINE NEGATIVE (NEGATIVE); OPIATES URINE NEGATIVE (NEGATIVE); PHENCYCLIDINE URINE NEGATIVE (NEGATIVE); POTASSIUM SERUM 4.2 MEQ/L (3.5-5.1); SALICYLATE LEVEL < 1.7 MG/DL (5.0-30.0); SODIUM LEVEL 140 MEQ/L (136-145); TOTAL PROTEIN 6.9 GM/DL (6.4-8.2); TROPONIN I < 0.02 NG/ML (< 0.10)
[2018-09-30] MEDS ORDERED: [UNRECOGNIZED DRUG - REMARK] PO (14:42)
[2018-09-30 15:02] VITALS: BP 117/76
--- NOTE | 2018-09-30 19:27 | ECGEPIP ---
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
--- NOTE | 2018-10-01 09:31 | REP ---
Head CT without contrast: History: Altered mental status. Comparison study: Comparison CT study September 15, 2017. 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 A Bone window settings demonstrate an intact bony calvarium. There is no evidence of skull fracture or incidental bony calvarial lesion. The visualized paranasal sinuses appear clear. No intraorbital abnormality is seen. On soft tissue window setting images; the lateral, third, and fourth ventricles are normal in size and position. John-white differentiation pattern is normal above and below the tentorium. There are is no evidence of intracranial hemorrhage. No mass, edema, infarction, or midline shift is seen. No extra-axial fluid collection is appreciated. Impression: Negative noncontrast head CT. Electronically Signed by Jose Alfredo Lubin MD 09/30/2018 01:12 P
--- NOTE | 2018-10-01 09:32 | REP ---
Portable chest x-ray: Single view. History: Altered mental status. Comparison study: April 24, 2017. Findings: EKG monitoring electrodes overlie the chest. Lungs are symmetrically aerated and clear. Pleural angles are sharp. Heart size is normal. Pulmonary vasculature is not increased. Impression: No active disease. Electronically Signed by Jose Alfredo Lubin MD 09/30/2018 01:30 P
[2018-10-02 15:03] LABS: ANTINUCLEAR ANTIBODIES DIRECT Negative (Negative)
== END 2018-09-30 15:05 | disposition home or self-care (01) ==
LOC: M ED 12:32
DX: R47.9 Unspecified speech disturbances (principal); F33.9 Major depressive disorder, recurrent, unspecified; F41.9 Anxiety disorder, unspecified; F17.210 Nicotine dependence, cigarettes, uncomplicated; Z79.899 Other long term (current) drug therapy
CPT/HCPCS: 36415; 70450; 71045; 80048; 80076; 80307; 81001; 82140; 82550; 82553; 84443; 85025; 85652; 86038; 86140; 93005; 93041; 94760; 99285; G0480

== ENCOUNTER 2018-10-02 12:31 | Emergency (ER) | payer OTHER ==
[~2018-10-02] VITALS: Ht 170.2 cm; Wt 71.8 kg
[~2018-10-02 12:31] MED LIST changes: +ESCI10TA2 PO; +[UNRECOGNIZED DRUG - REMARK] PO
[2018-10-02 13:24] LABS: BASO # 0.1 10^3/uL (0.0-0.2); BASO % 0.8 % (0.0-1.0); EOS % 0.5 % (0.0-3.0); HEMATOCRIT 39.5 % (36.0-47.0); HEMOGLOBIN 12.9 g/dl (12.0-15.5); LYMPH # 1.6 10^3/uL (1.5-4.5); LYMPH % 23.7 % (24.0-44.0); MEAN CORPUSCULAR HEMOGLOBIN 25.9 pg (27.0-33.0); MEAN CORPUSCULAR HGB CONC 32.7 g/dl (32.0-36.5); MEAN CORPUSCULAR VOLUME 79.3 fl (80.0-96.0); MONO # 0.4 10^3/uL (0.0-0.8); MONO % 6.7 % (0.0-5.0); NEUTROPHILS # 4.5 10^3/uL (1.8-7.7); PLATELET COUNT, AUTOMATED 241 10^3/uL (150-450); RED BLOOD COUNT 4.98 10^6/uL (4.00-5.40); WHITE BLOOD COUNT 6.6 10^3/uL (4.0-10.0)
[2018-10-02 13:38] LABS: INR 0.96; PROTHROMBIN TIME 12.9 SECONDS (12.1-14.4)
[2018-10-02 13:39] LABS: PARTIAL THROMBOPLASTIN TIME 23.4 SECONDS (25.4-37.6)
[2018-10-02 13:42] LABS: HCG, SERUM QUALITATIVE NEGATIVE (NEGATIVE)
[2018-10-02] MEDS ORDERED: ACETAMINOPHEN TAB 650MG DOSE (2X325MG) PO ONE (13:45)
[2018-10-02 13:47] LABS: BLOOD UREA NITROGEN 13 MG/DL (7-18); CALCIUM LEVEL 8.5 MG/DL (8.5-10.1); CARBON DIOXIDE LEVEL 25 MEQ/L (21-32); CHLORIDE LEVEL 108 MEQ/L (98-107); CPK CREATINE PHOSPHOKINASE 89 U/L (26-192); CREATININE FOR GFR 0.81 MG/DL (0.55-1.30); GLOMERULAR FILTRATION RATE > 60.0 (>60); GLUCOSE, FASTING 107 MG/DL (70-100); MB/CK RELATIVE INDEX 1.35 (< OR =4); POTASSIUM SERUM 4.2 MEQ/L (3.5-5.1); SODIUM LEVEL 139 MEQ/L (136-145); TROPONIN I < 0.02 NG/ML (< 0.10)
--- NOTE | 2018-10-02 14:42 | REP ---
Cervical spine two views: AP and lateral projections are performed. There are no comparisons. Vertebral body heights, interspacing alignment are normal. The prevertebral soft tissues are normal. The facets are normally aligned. There is no listhesis. There is a small osteophyte anteriorly inferiorly on the C4 vertebral body compatible with mild degenerative disc disease. Impression: Mild C4-5 degenerative disc disease. Otherwise, negative two-view cervical spine. Electronically Signed by Lucio Alvarenga MD 10/02/2018 02:33 P
[2018-10-02 15:36] LABS: AMPHETAMINES LEVEL URINE NEGATIVE (NEGATIVE); BARBITURATES URINE NEGATIVE (NEGATIVE); BENZODIAZEPINES URINE NEGATIVE (NEGATIVE); CANNABINOIDS URINE NEGATIVE (NEGATIVE); COCAINE METABOLITE URINE NEGATIVE (NEGATIVE); METHADONE URINE NEGATIVE (NEGATIVE); OPIATES URINE NEGATIVE (NEGATIVE); PHENCYCLIDINE URINE NEGATIVE (NEGATIVE)
[2018-10-02] MEDS ORDERED: PROHANCE 279.3MG/ML 15ML VIAL (A9576) As Ordered ONE (19:21)
--- NOTE | 2018-10-02 20:09 | REPVR ---
EXAM: MR Head Without and With Contrast EXAM DATE/TIME: 10/02/2018 7:41 PM CLINICAL HISTORY: 32 years old, female; Screening exam; Patient HX: Facial and arm numbness; Additional info: Facial and arm numbness with confusion TECHNIQUE: Imaging protocol: MR of the head without and with intravenous contrast. Contrast material: prohance Contrast volume: 14 ml Contrast route: angiocath COMPARISON: CT Head without contrast 09/30/2018 12:56 PM FINDINGS: Brain: Foci of T2 lengthening demonstrated in the posterior periventricular white matter, finding is of uncertain significance. Demyelinating disease not excluded. No abnormal enhancement demonstrated. Ventricles: Normal. No ventriculomegaly. Bones/joints: Unremarkable. Soft tissues: Normal. Sinuses: Normal as visualized. No acute sinusitis. Mastoid air cells: Normal as visualized. No mastoid effusion. Orbits: Unremarkable. IMPRESSION: Foci of T2 lengthening demonstrated in the posterior periventricular white matter, finding is of uncertain significance. Demyelinating disease not excluded. No abnormal enhancement demonstrated. Electronically signed by: Josue Ozuna On 10/02/2018 20:08:37 PM
[2018-10-02 20:52] VITALS: BP 116/70
--- NOTE | 2018-10-02 21:38 | ECGEPIP ---
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
--- NOTE | 2018-10-03 14:29 | ED PDOC ---
Post-Departure Follow-Up dr lombardo faxed formal report of mri brain for fu Nicky Lewis MD Oct 03, 2018 14:29
[2018-10-04 00:06] LABS: Lyme Disease IgG/IgM Antibodie <0.91 ISR (0.00-0.90); Lyme Disease IgM Ab Quantitati <0.80 index (0.00-0.79)
== END 2018-10-02 20:55 | disposition home or self-care (01) ==
LOC: M ED 12:31
DX: R41.0 Disorientation, unspecified (principal); F32.9 Major depressive disorder, single episode, unspecified; H53.8 Other visual disturbances; G43.909 Migraine, unspecified, not intractable, without status migrainosus; F41.9 Anxiety disorder, unspecified; Z82.0 Family history of epilepsy and other diseases of the nervous system; Z82.69 Family history of other diseases of the musculoskeletal system and connective tissue; Z79.899 Other long term (current) drug therapy; Z72.0 Tobacco use
CPT/HCPCS: 36415; 70553; 72040; 80048; 80307; 81001; 82550; 82553; 84703; 85025; 85610; 85730; 86617; 93005; 93041; 94760; 99285; A9576

== ENCOUNTER 2018-10-10 23:44 | Emergency (ER) | payer OTHER ==
[2018-10-11] MEDS ORDERED: NS 1,000 ML IV ONE
[2018-10-11 00:26] LABS: BASO # 0.1 10^3/uL (0.0-0.2); BASO % 1.2 % (0.0-1.0); EOS % 0.6 % (0.0-3.0); HEMATOCRIT 44.2 % (36.0-47.0); HEMOGLOBIN 14.3 g/dl (12.0-15.5); LYMPH # 2.1 10^3/uL (1.5-4.5); LYMPH % 41.1 % (24.0-44.0); MEAN CORPUSCULAR HEMOGLOBIN 26.1 pg (27.0-33.0); MEAN CORPUSCULAR HGB CONC 32.4 g/dl (32.0-36.5); MEAN CORPUSCULAR VOLUME 80.8 fl (80.0-96.0); MONO # 0.3 10^3/uL (0.0-0.8); NEUTROPHILS # 2.6 10^3/uL (1.8-7.7); NEUTROPHILS % 50.9 % (36.0-66.0); PLATELET COUNT, AUTOMATED 294 10^3/uL (150-450); RED BLOOD COUNT 5.47 10^6/uL (4.00-5.40)
[2018-10-11] MEDS ORDERED: ZONI25CA2 PO (00:27)
[2018-10-11] MEDS ORDERED: ESCI5SOL3 PO (00:27)
--- NOTE | 2018-10-11 00:57 | REPVR ---
EXAM: CT Head Without Contrast EXAM DATE/TIME: 10/10/2018 11:51 PM CLINICAL HISTORY: 32 years old, female; Signs and symptoms; Other: Seizure; Additional info: Altered mental status TECHNIQUE: Imaging protocol: Axial computed tomography images of the head/brain without contrast. Radiation optimization: All CT scans at this facility use at least one of these dose optimization techniques: automated exposure control; mA and/or kV adjustment per patient size (includes targeted exams where dose is matched to clinical indication); or iterative reconstruction. COMPARISON: CT Head without contrast 09/30/2018 12:56 PM FINDINGS: Brain: Normal. No hemorrhage. No significant white matter disease. No edema. Cortical garcia-white matter differentiation is preserved. Ventricles: Normal. No ventriculomegaly. Bones/joints: Unremarkable. No acute fracture. Sinuses: Visualized sinuses are unremarkable. No acute sinusitis. Mastoid air cells: Visualized mastoid air cells are unremarkable. No mastoid effusion. Soft tissues: Unremarkable. IMPRESSION: No acute findings. Electronically signed by: David Ledesma On 10/11/2018 00:57:28 AM
[2018-10-11 01:03] LABS: ACETAMINOPHEN LEVEL < 2.0 UG/ML (10.0-30.0); ALBUMIN 4.3 GM/DL (3.2-5.2); ALT/SGPT 26 U/L (12-78); BILIRUBIN,DIRECT < 0.1 MG/DL (0.0-0.2); BILIRUBIN,TOTAL 0.3 MG/DL (0.2-1.0); BLOOD UREA NITROGEN 10 MG/DL (7-18); CALCIUM LEVEL 8.7 MG/DL (8.5-10.1); CARBON DIOXIDE LEVEL 24 MEQ/L (21-32); CHLORIDE LEVEL 109 MEQ/L (98-107); CPK CREATINE PHOSPHOKINASE 272 U/L (26-192); ETHYL ALCOHOL (ETHANOL) 0.209 % (0.000-0.010); GLOMERULAR FILTRATION RATE > 60.0 (>60); GLUCOSE, FASTING 86 MG/DL (70-100); MB/CK RELATIVE INDEX 0.44 (< OR =4); POTASSIUM SERUM 5.3 MEQ/L (3.5-5.1); SALICYLATE LEVEL < 1.7 MG/DL (5.0-30.0); SODIUM LEVEL 142 MEQ/L (136-145); TOTAL PROTEIN 8.1 GM/DL (6.4-8.2); TROPONIN I < 0.02 NG/ML (< 0.10)
[2018-10-11 01:11] LABS: HCG, SERUM QUALITATIVE NEGATIVE (NEGATIVE)
[2018-10-11 01:47] LABS: ABG BASE EXCESS -2.8 (-2.0-2.0); ABG HCO3 21.2 MEQ/L (22.0-26.0); ABG PARTIAL PRESSURE CO2 34.5 mmHg (35.0-45.0); ABG PARTIAL PRESSURE O2 109.2 mmHg (75.0-100.0); ABG STANDARD HCO3 22.2 MEQ/L (22.0-26.0); ABG TOTAL CO2 22.2 MEQ/L (22.0-29.0); ABG pH (ARTERIAL) 7.406 UNITS (7.350-7.450)
[2018-10-11] MEDS ORDERED: ACETAMINOPHEN TAB 650MG DOSE (2X325MG) PO ONE (02:15)
[2018-10-11 02:22] LABS: AMPHETAMINES LEVEL URINE POSITIVE (NEGATIVE); BARBITURATES URINE NEGATIVE (NEGATIVE); BENZODIAZEPINES URINE NEGATIVE (NEGATIVE); CANNABINOIDS URINE NEGATIVE (NEGATIVE); COCAINE METABOLITE URINE NEGATIVE (NEGATIVE); METHADONE URINE NEGATIVE (NEGATIVE); OPIATES URINE NEGATIVE (NEGATIVE); PHENCYCLIDINE URINE NEGATIVE (NEGATIVE)
[2018-10-11] MEDS ORDERED: ACET-897 PO (02:40)
[2018-10-11] MEDS ORDERED: EXCETAB33 PO (02:40)
[2018-10-11] MEDS ORDERED: ZONI50CA3 PO (02:40)
[2018-10-11 03:20] VITALS: BP 107/66
--- NOTE | 2018-10-11 09:12 | REP ---
CHEST, SINGLE VIEW: There is no evidence of acute infiltrate. No pleural effusion is seen. The heart is normal in size. The mediastinal silhouette is unremarkable. The visualized osseous structures are intact. IMPRESSION: No acute pulmonary disease. Electronically Signed by Lucio John MD 10/11/2018 11:07 A
--- NOTE | 2018-10-11 13:08 | ECGEPIP ---
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
== END 2018-10-11 03:22 | disposition home or self-care (01) ==
LOC: M ED 23:44
DX: F10.129 Alcohol abuse with intoxication, unspecified (principal); F44.5 Conversion disorder with seizures or convulsions; Z72.0 Tobacco use; Z79.82 Long term (current) use of aspirin; Z79.899 Other long term (current) drug therapy
CPT/HCPCS: 36600; 51701; 70450; 71045; 80048; 80076; 80307; 81001; 82140; 82550; 82553; 82803; 83605; 84443; 84703; 85025; 87040; 93005; 93041; 96360; 96361; 99285; G0480

== ENCOUNTER → 2018-10-26 | Outpatient (CLI) | payer OTHER ==
[~2018-10-26] MED LIST changes: +ACET-897 PO; +ESCI5SOL3 PO; +EXCETAB33 PO; +ZONI25CA2 PO; +ZONI50CA3 PO
--- NOTE | 2018-10-28 11:33 | EEG ---
DATE OF EE10/26/2018 REFERRING PROVIDER: SHUKRI Beavers DIAGNOSIS: Syncope. EEG NUMBER: [id number]. HISTORY: Patient is a 32-year-old woman with episode of passing out. She also has history of migraines. This EEG was done to rule out epileptic potential. The patient has migraines with visual aura and does not act herself. She does not remember anything that happened during these episodes. This EEG was done to rule out epileptic potential. She is currently taking Lexapro, propranolol, zonisamide. TECHNICAL DESCRIPTION: This digital EEG was recorded by 21 scalp, ear and two EKG electrodes and was reviewed in bipolar and referential montages following reformatting in 10-20 international electrode placement system. INTERPRETATION: The patient was noted to be in awake and drowsy states during this EEG. Resting awake background rhythm consisted of well-formed posterior dominant rhythm with anterior/posterior gradient comprising of 10 Hz alpha activity measuring 15-40 microvolts in amplitude, was symmetric and reactive to eye opening. Anteriorly low voltage and mixed frequency activity was noted. Stage 1 and 2 sleep were reviewed and were symmetric bilaterally. Hyperventilation elicited mild theta slowing of background rhythm. Photic stimulation at 3-30 Hz elicited symmetric photic driving especially at mid frequencies. EKG revealed normal sinus rhythm. No focal, lateralizing or epileptiform abnormalities were seen. No clinical or electrographic seizures were noted. Bilateral frontal electrode artifacts were noted. CONCLUSION: This EEG in awake, drowsy states, stage 1 and 2 sleep is within normal limits.
== END ==
LOC: M SLEEP 08:11
PROVIDERS: ATTEND Physician Assistant Medical
DX: R55 Syncope and collapse (principal)

== ENCOUNTER 2018-11-20 18:06 | Emergency (ER) | payer MEDICAID, OTHER ==
[~2018-11-20] VITALS: Ht 170.2 cm; Wt 74.0 kg
[2018-11-20 18:07] VITALS: BP 115/69
--- NOTE | 2018-11-20 19:13 | REP ---
RIGHT FOOT, FOUR VIEWS: HISTORY: Pain. There is no acute fracture or dislocation. The joint spaces are normal in appearance. IMPRESSION:There is no acute fracture or dislocation. Electronically Signed by Romulo Hidalgo MD 11/20/2018 07:22 P
== END 2018-11-20 20:25 | disposition left against medical advice (07) ==
LOC: M ED 18:06
DX: R52 Pain, unspecified (principal); Z53.21 Procedure and treatment not carried out due to patient leaving prior to being seen by health care provider

== ENCOUNTER → 2018-11-21 | Outpatient (REF) | payer OTHER ==
[2018-11-21 11:42] LABS: ALT/SGPT 20 U/L (12-78); BILIRUBIN,TOTAL 0.4 MG/DL (0.2-1.0); BLOOD UREA NITROGEN 14 MG/DL (7-18); CARBON DIOXIDE LEVEL 29 MEQ/L (21-32); CHLORIDE LEVEL 108 MEQ/L (98-107); CPK CREATINE PHOSPHOKINASE 65 U/L (26-192); CREATININE FOR GFR 0.82 MG/DL (0.55-1.30); FREE T4 0.77 NG/DL (0.76-1.46); GLOMERULAR FILTRATION RATE > 60.0 (>60); GLUCOSE, FASTING 89 MG/DL (70-100); MAGNESIUM LEVEL 2.2 MG/DL (1.8-2.4); POTASSIUM SERUM 4.7 MEQ/L (3.5-5.1); SODIUM LEVEL 141 MEQ/L (136-145); TOTAL PROTEIN 7.5 GM/DL (6.4-8.2)
== END ==
LOC: M LABDRAW1 09:45
PROVIDERS: ATTEND Physician Assistant Medical
DX: G43.109 Migraine with aura, not intractable, without status migrainosus (principal); F32.0 Major depressive disorder, single episode, mild

== ENCOUNTER → 2019-07-11 | Outpatient (REF) | payer OTHER ==
[~2019-07-11] MED LIST changes: +ZONI25CA13 PO; -ZONI25CA2 PO; +ZONI50CA11 PO; -ZONI50CA3 PO
[2019-07-11 10:44] LABS: BASO # 0.1 10^3/uL (0.0-0.2); BASO % 0.9 % (0.0-1.0); EOS # 0.1 10^3/uL (0.0-0.5); EOS % 0.9 % (0.0-3.0); HEMATOCRIT 42.3 % (36.0-47.0); HEMOGLOBIN 13.4 g/dl (12.0-15.5); LYMPH # 1.7 10^3/uL (1.5-5.0); LYMPH % 25.7 % (24.0-44.0); MEAN CORPUSCULAR HEMOGLOBIN 25.7 pg (27.0-33.0); MEAN CORPUSCULAR HGB CONC 31.7 g/dl (32.0-36.5); MEAN CORPUSCULAR VOLUME 81.2 fl (80.0-96.0); MONO # 0.4 10^3/uL (0.0-0.8); MONO % 6.9 % (0.0-5.0); NEUTROPHILS # 4.2 10^3/uL (1.5-8.5); NEUTROPHILS % 65.3 % (36.0-66.0); PLATELET COUNT, AUTOMATED 267 10^3/uL (150-450); RED BLOOD COUNT 5.21 10^6/uL (4.00-5.40); WHITE BLOOD COUNT 6.4 10^3/uL (4.0-10.0)
[2019-07-11 11:08] LABS: ALBUMIN 4.1 GM/DL (3.2-5.2); ALT/SGPT 14 U/L (12-78); BILIRUBIN,TOTAL 0.4 MG/DL (0.2-1.0); BLOOD UREA NITROGEN 10 MG/DL (7-18); CALCIUM LEVEL 8.9 MG/DL (8.5-10.1); CARBON DIOXIDE LEVEL 27 MEQ/L (21-32); CHLORIDE LEVEL 108 MEQ/L (98-107); CHOLESTEROL LEVEL 181 MG/DL (<200); CHOLESTEROL RISK RATIO 3.016 (<5); CREATININE FOR GFR 0.79 MG/DL (0.55-1.30); GLOMERULAR FILTRATION RATE > 60.0 (>60); GLUCOSE, FASTING 71 MG/DL (70-100); HDL CHOLESTEROL 60 MG/DL (>40); LDL CHOLESTEROL 102 MG/DL (<100); NON-HDL-C 121 MG/DL; POTASSIUM SERUM 4.6 MEQ/L (3.5-5.1); SODIUM LEVEL 141 MEQ/L (136-145); TOTAL PROTEIN 7.3 GM/DL (6.4-8.2); TRIGLYCERIDES LEVEL 97 MG/DL (<150)
== END ==
LOC: M SFHCPLAZ 08:29
PROVIDERS: ATTEND Physician Assistant Medical
DX: Z13.220 Encounter for screening for lipoid disorders (principal); G43.109 Migraine with aura, not intractable, without status migrainosus

== ENCOUNTER → 2019-07-11 | Outpatient (CLI) | payer OTHER ==
--- NOTE | 2019-07-12 02:50 | REPPI ---
Clinical: Lumbar pain. Technique: AP, lateral, bilateral oblique and coned-down views of the lumbosacral spine. Findings: Alignment and lordosis maintained. Vertebral bodies are intact. No acute fracture / compression injury or subluxation. Focal degenerative change at L5-S1 includes endplate sclerosis with disc space narrowing and very subtle spurring. Impression: Focal degenerative changes at L5-S1. Electronically Signed by Ricco Truong MD 07/12/2019 02:42 A
== END ==
LOC: M PLAIMG 08:48
PROVIDERS: ATTEND Physician Assistant Medical
DX: M51.37 Other intervertebral disc degeneration, lumbosacral region (principal); M54.2 Cervicalgia; M25.78 Osteophyte, vertebrae

== ENCOUNTER → 2019-07-27 | Outpatient (CLI) | payer OTHER ==
--- NOTE | 2019-07-28 17:54 | REPVR ---
PROCEDURE INFORMATION: Exam: MR Cervical Spine Without Contrast Exam date and time: 07/27/2019 2:25 PM Age: 33 years old Clinical indication: Pain; Cervicalgia; Additional info: Cervicvalgia TECHNIQUE: Imaging protocol: Multiplanar magnetic resonance images of the cervical spine without contrast. COMPARISON: CR Spine,Cervical 2 or 3 views 10/02/2018 2:08 PM FINDINGS: Vertebrae: Unremarkable. Spinal cord: Normal. C1-C2: There are degenerative changes demonstrated in the atlantoaxial joint with osteophytes and joint space narrowing. The transverse ligament is normal. C2-C3: No significant disc disease. No significant spinal stenosis. C3-C4: No significant disc disease. No significant spinal stenosis. C4-C5: Diffusely bulging annulus C4-C5 effaces the ventral subarachnoid space without cord impingement. C5-C6: Diffusely bulging annulus at C5-C6 effaces the ventral subarachnoid space without cord impingement. C6-C7: No significant disc disease. No significant spinal stenosis. C7-T1: No significant disc disease. No significant spinal stenosis. Vertebral arteries: Expected flow voids in the vertebral arteries. Soft tissues: Normal IMPRESSION: 1. Bulging annuli at C4-C5 and C5-C6. No cord impingement. 2. No significant foraminal stenosis. 3. Mild degenerative changes C1-C2. Electronically signed by: Josue Ozuna On 07/28/2019 17:54:16 PM
== END ==
LOC: M RAD 13:29
PROVIDERS: ATTEND Physician Assistant Medical
DX: M54.2 Cervicalgia (principal)

== ENCOUNTER 2020-02-07 05:00 | Emergency (ER) | payer MEDICAID, OTHER ==
[~2020-02-07] VITALS: Ht 170.2 cm; Wt 80.9 kg
[2020-02-07] MEDS ORDERED: TRAZ-252 (05:09)
[2020-02-07] MEDS ORDERED: PROP20TA72 (05:09)
[2020-02-07] MEDS ORDERED: TIZA2TA (05:09)
[2020-02-07] MEDS ORDERED: BUSP10TA (05:09)
[2020-02-07] MEDS ORDERED: ESCI20TA (05:09)
--- NOTE | 2020-02-07 06:03 | REPVR ---
PROCEDURE INFORMATION: Exam: XR Left Foot Complete Exam date and time: 02/07/2020 5:28 AM Age: 34 years old Clinical indication: Pain; Foot; Left; Additional info: Trauma TECHNIQUE: Imaging protocol: XR Left foot. Views: 3 or more views. COMPARISON: CR Foot, complete 11/20/2018 6:49 PM FINDINGS: Bones/joints: Normal. No fracture or dislocation. A minimal cyst is noted in the proximal phalanx of the great toe. Soft tissues: Normal. IMPRESSION: Negative left foot. Electronically signed by: Deo Nash On 02/07/2020 06:03:38 AM
[2020-02-07] MEDS ORDERED: IBUPROFEN 600MG TAB PO ONE (06:15)
[2020-02-07 06:22] VITALS: BP 124/62
== END 2020-02-07 06:33 | disposition home or self-care (01) ==
LOC: M ED 05:00
DX: S93.602A Unspecified sprain of left foot, initial encounter (principal); W10.8XXA Fall (on) (from) other stairs and steps, initial encounter; Y92.008 Other place in unspecified non-institutional (private) residence as the place of occurrence of the external cause; M79.605 Pain in left leg; F41.9 Anxiety disorder, unspecified; G43.909 Migraine, unspecified, not intractable, without status migrainosus; Z79.899 Other long term (current) drug therapy; Z79.3 Long term (current) use of hormonal contraceptives; F17.210 Nicotine dependence, cigarettes, uncomplicated

== ENCOUNTER → 2020-03-01 | Outpatient (REF) | payer OTHER, MEDICAID ==
[~2020-03-01] MED LIST changes: +BUSP10TA; +ESCI20TA; +PROM25TA12 PO; +PROP20TA72; +SUMA50TA2; +TIZA2TA; +TRAZ-252
== END ==
LOC: M LAB REF 18:49
PROVIDERS: ATTEND Physician Assistant
DX: J02.9 Acute pharyngitis, unspecified (principal)

== ENCOUNTER 2020-04-29 18:07 | Emergency (ER) | payer MEDICAID, OTHER ==
[~2020-04-29] VITALS: Ht 170.2 cm; Wt 93.4 kg
[~2020-04-29 18:07] MED LIST changes: -PROM25TA12 PO; -SUMA50TA2
[2020-04-29] MEDS ORDERED: SUMA50TA2 (18:22)
[2020-04-29] MEDS ORDERED: NS 1,000 ML IV ONE (19:15)
[2020-04-29] MEDS ORDERED: ONDANSETRON 4MG/2ML VIAL IV PRN (19:15)
[2020-04-29] MEDS ORDERED: dexameTHASONE 4 MG/ML 1ML VIAL (J1100 PER 1MG) IV ONE (19:15)
[2020-04-29] MEDS ORDERED: KETOROLAC 30 MG/ML 1ML VIAL IV ONE (19:15)
[2020-04-29 20:12] LABS: INFLUENZA A AMPLIFICATION NEGATIVE (NEGATIVE); INFLUENZA B AMPLIFICATION NEGATIVE (NEGATIVE)
[2020-04-29] MEDS ORDERED: PROM25TA12 PO (21:04)
[2020-04-29 21:39] VITALS: BP 140/45
== END 2020-04-29 21:43 | disposition home or self-care (01) ==
LOC: M ED 18:07
DX: G43.909 Migraine, unspecified, not intractable, without status migrainosus (principal); Z79.899 Other long term (current) drug therapy; Z79.82 Long term (current) use of aspirin
CPT/HCPCS: 87502; 96361; 96374; 96375; 99283; J1100; J1885; J2405

== ENCOUNTER 2020-05-04 11:50 | Emergency (ER) | payer OTHER ==
[~2020-05-04] VITALS: Ht 170.2 cm; Wt 90.9 kg
[~2020-05-04 11:50] MED LIST changes: +PROM25TA12 PO; +SUMA50TA2
[2020-05-04 11:51] VITALS: BP 128/82
--- NOTE | 2020-05-04 13:17 | REP ---
INDICATION: fall injury COMPARISON: None. TECHNIQUE: Four views right foot FINDINGS: There is no evidence of acute fracture, dislocation, or intrinsic bone disease. IMPRESSION: No fracture or dislocation. <Electronically signed by Lucio John > 05/04/20 [id number]
[2020-05-04] MEDS ORDERED: PROAAER10 INH (14:08)
[2020-05-04] MEDS ORDERED: IBUP-1022 PO (14:08)
[2020-05-05] MEDS ORDERED: PRED20TA PO (17:56)
[2020-05-05] MEDS ORDERED: TESS100C PO (17:56)
== END 2020-05-04 15:08 | disposition home or self-care (01) ==
LOC: M ED 11:50
DX: S90.31XA Contusion of right foot, initial encounter (principal); W01.0XXA Fall on same level from slipping, tripping and stumbling without subsequent striking against object, initial encounter; Y92.018 Other place in single-family (private) house as the place of occurrence of the external cause; R05 Cough; I10 Essential (primary) hypertension; Z79.899 Other long term (current) drug therapy; Z79.82 Long term (current) use of aspirin; F17.210 Nicotine dependence, cigarettes, uncomplicated
CPT/HCPCS: 73630; 99284; U0003

== ENCOUNTER 2020-05-05 14:13 | Emergency (ER) | payer OTHER ==
[~2020-05-05] VITALS: Ht 170.2 cm; Wt 90.9 kg
[~2020-05-05 14:13] MED LIST changes: +IBUP-1022 PO; +PROAAER10 INH
[2020-05-05] MEDS: COMBIVENT RESPIMAT 100-20MCG INHALER 4GM INH SCH ×3 (15:30→16:57)
[2020-05-05] MEDS ORDERED: dexameTHASONE 20MG/5ML VIAL (J1100 PER 1MG) IV ONE (15:30)
[2020-05-05 16:11] LABS: BASO % 0.4 % (0.0-1.0); EOS # 0.2 10^3/uL (0.0-0.5); EOS % 2.2 % (0.0-3.0); HEMATOCRIT 42.9 % (36.0-47.0); HEMOGLOBIN 13.3 g/dl (12.0-15.5); LYMPH # 1.4 10^3/uL (1.5-5.0); LYMPH % 13.9 % (24.0-44.0); MEAN CORPUSCULAR HEMOGLOBIN 26.2 pg (27.0-33.0); MEAN CORPUSCULAR VOLUME 84.6 fl (80.0-96.0); MONO # 0.6 10^3/uL (0.0-0.8); MONO % 6.2 % (0.0-5.0); NEUTROPHILS # 7.6 10^3/uL (1.5-8.5); NEUTROPHILS % 76.9 % (36.0-66.0); PLATELET COUNT, AUTOMATED 263 10^3/uL (150-450); RED BLOOD COUNT 5.07 10^6/uL (4.00-5.40); WHITE BLOOD COUNT 9.9 10^3/uL (4.0-10.0)
[2020-05-05 16:35] LABS: ALBUMIN 3.5 GM/DL (3.2-5.2); ALT/SGPT 19 U/L (12-78); BILIRUBIN,DIRECT 0.1 MG/DL (0.0-0.2); BILIRUBIN,TOTAL 0.3 MG/DL (0.2-1.0); BLOOD UREA NITROGEN 13 MG/DL (7-18); CALCIUM LEVEL 8.6 MG/DL (8.5-10.1); CARBON DIOXIDE LEVEL 27 MEQ/L (21-32); CHLORIDE LEVEL 107 MEQ/L (98-107); CREATININE FOR GFR 0.93 MG/DL (0.55-1.30); GLOMERULAR FILTRATION RATE > 60.0 (>60); GLUCOSE, FASTING 105 MG/DL (70-100); POTASSIUM SERUM 3.9 MEQ/L (3.5-5.1); SODIUM LEVEL 140 MEQ/L (136-145)
[2020-05-05 16:41] LABS: HCG, SERUM QUALITATIVE NEGATIVE (NEGATIVE)
[2020-05-05] MEDS ORDERED: PRED20TA PO (17:56)
[2020-05-05] MEDS ORDERED: TESS100C PO (17:56)
[2020-05-05 18:00] VITALS: BP 140/82
--- NOTE | 2020-05-07 06:39 | REP ---
INDICATION: DYSPNEA/COUGH COMPARISON: 10/11/2018 TECHNIQUE: Portable AP view of the chest FINDINGS: Mediastinum and cardiac silhouette are normal. Lung santana are relatively well aerated and clear. However, there is a vague area of opacity in the right lower lung zone which warrants further investigation to exclude acute infiltrate or possible forming mass. No effusion. No pneumothorax. Skeletal structures intact. IMPRESSION: Vague area of opacity in the right lower lung zone warrants further investigation. Correlation with auscultation is recommended. Consider contrast-enhanced chest CT follow-up. <Electronically signed by Ricco Truong > 05/07/20 [id number]
--- NOTE | 2020-05-09 07:40 | ED PDOC ---
Post-Departure Follow-Up cxr faxed to [facility] for fu Nicky Lewis MD May 09, 2020 07:39
== END 2020-05-05 18:11 | disposition home or self-care (01) ==
LOC: M ED 14:13
DX: J40 Bronchitis, not specified as acute or chronic (principal); I10 Essential (primary) hypertension; F17.200 Nicotine dependence, unspecified, uncomplicated; Z79.899 Other long term (current) drug therapy
CPT/HCPCS: 71045; 80048; 80076; 84703; 85025; 87486; 87581; 87633; 87798; 93041; 94760; 96374; 99285; J1100

== ENCOUNTER → 2020-12-23 | Outpatient (CLI) | payer MEDICAID ==
[~2020-12-23] MED LIST changes: +EMTR1TAB16 PO; +ESCI10TA16 PO; -ESCI10TA2 PO; -ESCI20TA; +ESCI20TA16; +PRED20TA PO; +TESS100C PO; -TRUVTAB PO
== END ==
LOC: M OUTALCOH 07:58
PROVIDERS: ATTEND Psychiatry & Neurology Psychiatry
DX: F10.20 Alcohol dependence, uncomplicated (principal); F14.10 Cocaine abuse, uncomplicated

== ENCOUNTER 2021-01-11 13:47 | Outpatient (RCR) | payer MEDICAID | END 2021-01-16 | LOC: M OUTALCOH 13:47 | PROVIDERS: ATTEND Psychiatry & Neurology Psychiatry | DX: F11.21 Opioid dependence, in remission (principal); F10.20 Alcohol dependence, uncomplicated; F14.10 Cocaine abuse, uncomplicated; F12.20 Cannabis dependence, uncomplicated ==

== ENCOUNTER 2021-01-19 10:00 | Outpatient (RCR) | payer MEDICAID ==
[~2021-01-19 10:00] MED LIST changes: -TIZA2TA; +TIZA2TA PO
[2021-01-29] MEDS ORDERED: PROAAER10 INH (22:59)
[2021-01-29] MEDS ORDERED: ESSE250T PO (22:59)
[2021-01-29] MEDS ORDERED: SUMA100T2 PO (22:59)
[2021-01-29] MEDS ORDERED: DRAM50TA9 PO (23:01)
[2021-02-05] MEDS ORDERED: TRAZ-252 PO (08:48)
[2021-02-05] MEDS ORDERED: OLAN1TAB16 PO (08:48)
[2021-02-05] MEDS ORDERED: NICO21PAT TD (08:48)
[2021-02-05] MEDS ORDERED: BUPR150T12 PO (08:48)
== END 2021-02-16 ==
LOC: M OUTALCOH 10:00
PROVIDERS: ATTEND Psychiatry & Neurology Psychiatry
DX: F10.20 Alcohol dependence, uncomplicated (principal); F14.10 Cocaine abuse, uncomplicated; F12.20 Cannabis dependence, uncomplicated; F11.21 Opioid dependence, in remission

== ENCOUNTER 2021-01-29 18:03 | Inpatient (IN) | payer MEDICAID ==
[~2021-01-29] VITALS: Ht 170.2 cm; Wt 97.4 kg
[2021-01-29 19:51] LABS: HEMATOCRIT 42.4 % (36.0-47.0); MEAN CORPUSCULAR HEMOGLOBIN 27.5 pg (27.0-33.0); MEAN CORPUSCULAR VOLUME 83.3 fl (80.0-96.0); PLATELET COUNT, AUTOMATED 322 10^3/uL (150-450); RED BLOOD COUNT 5.09 10^6/uL (4.00-5.40); WHITE BLOOD COUNT 8.5 10^3/uL (4.0-10.0)
[2021-01-29 20:15] LABS: AMPHETAMINES LEVEL URINE NEGATIVE (NEGATIVE); BARBITURATES URINE NEGATIVE (NEGATIVE); BENZODIAZEPINES URINE NEGATIVE (NEGATIVE); CANNABINOIDS URINE NEGATIVE (NEGATIVE); COCAINE METABOLITE URINE NEGATIVE (NEGATIVE); METHADONE URINE NEGATIVE (NEGATIVE); OPIATES URINE NEGATIVE (NEGATIVE); PHENCYCLIDINE URINE NEGATIVE (NEGATIVE)
[2021-01-29 21:06] LABS: ACETAMINOPHEN LEVEL < 2.0 UG/ML (10.0-30.0); ALBUMIN 4.1 GM/DL (3.2-5.2); ALT/SGPT 29 U/L (12-78); BILIRUBIN,DIRECT 0.1 MG/DL (0.0-0.2); BILIRUBIN,TOTAL 0.3 MG/DL (0.2-1.0); BLOOD UREA NITROGEN 11 MG/DL (7-18); CARBON DIOXIDE LEVEL 30 MEQ/L (21-32); CHLORIDE LEVEL 107 MEQ/L (98-107); CREATININE FOR GFR 0.88 MG/DL (0.55-1.30); ETHYL ALCOHOL (ETHANOL) < 0.003 % (0.000-0.010); GLOMERULAR FILTRATION RATE > 60.0 (>60); GLUCOSE, FASTING 93 MG/DL (70-100); POTASSIUM SERUM 4.5 MEQ/L (3.5-5.1); SALICYLATE LEVEL 1.8 MG/DL (5.0-30.0); SODIUM LEVEL 139 MEQ/L (136-145); TOTAL PROTEIN 7.5 GM/DL (6.4-8.2)
[2021-01-29] MEDS ORDERED: SUMA100T2 PO (22:59)
[2021-01-29] MEDS ORDERED: PROAAER10 INH (22:59)
[2021-01-29] MEDS ORDERED: ESSE250T PO (22:59)
[2021-01-29] MEDS ORDERED: DRAM50TA9 PO (23:01)
[2021-01-29] MEDS ORDERED: ACETAMINOPHEN TAB 650MG DOSE (2X325MG) PO ONE (23:05)
[2021-01-29] MEDS ORDERED: HOME MED LIST COMPLETE! XX SCH (23:05)
[2021-01-30 01:46] LABS: RSV AMPLIFICATION NEGATIVE (NEGATIVE)
[2021-01-30] MEDS ORDERED: ALBUTEROL 90 MCG/ACT 8GM HFA INHALER INH PRN (02:10)
[2021-01-30] MEDS ORDERED: MOM 30ML SUSPENSION UDC PO PRN (02:10)
[2021-01-30 02:46] VITALS: BP 136/102
[2021-01-30] MEDS: EXCEDRIN MIGRAINE TABLET PO PRN (04:12)
[2021-01-30] MEDS: LORazepam 1 MG TAB PO PRN ×2 (08:59→17:02)
[2021-01-30] MEDS: ACETAMINOPHEN TAB 650MG DOSE (2X325MG) PO PRN (09:00)
[2021-01-30] MEDS: NICOTINE 21MG/24HR 1 EA TRANSDERMAL TD SCH (09:26)
--- NOTE | 2021-01-30 15:37 | HPEPDOC ---
General Date of Admission Jan 30, 2021 at 02:06 Date of Service: Jan 30, 2021 Attending Physician: GABRIEL JANE MD Chief Complaint The patient is a 35-year-old female admitted with a reason for visit of MHE. Source: Patient, RN notes reviewed Exam Limitations: No limitations Timing/Duration: Week(s) History of Present Illness 35 yo W with a history of PSUD who had been in remission for years but then relapsed with intermittent cocaine use since 11/2020 who presented to the ED per urging of her mental health provider after she reported severe depression with passive suicidal thoughts from the psychosocial stressors with ongoing CPS investigations and recent drug use. She otherwise reports a prior medical history of migraines on imitrex PRN, history of cervical trauma with chronic pain and anxiety. She otherwise denied any recent physical illness with cough, SOB, fever, chills, sweats, chest pain, palpitations, recent travel or sick contacts. Home Medications Scheduled Magnesium Oxide (Magnesium Oxide) 250 Mg Tablet, 250 MG PO DAILY, (Reported) Scheduled PRN Acetaminophen (Tylenol Extra Strength) 500 Mg Tablet, 1,000 MG PO Q6H PRN for HEADACHE OR PAIN, (Reported) Albuterol Sulfate (Proair Hfa) 8.5 Gm Hfa.aer.ad, 2 PUFF INH Q4-6HP PRN for WHEEZING, (Reported) Aspirin/Acetaminophen/Caffeine (Excedrin Migraine Caplet) 1 Each Tablet, 2 TAB PO BID PRN for HEADACHE, (Reported) Sumatriptan Succinate (Sumatriptan Succinate) 100 Mg Tablet, 100 MG PO ASDIRECTED PRN for MIGRAINE, (Reported) Tizanidine HCl (Tizanidine HCl) 2 Mg Tablet, 2 MG PO TID PRN for MUSCLE SPASMS, (Reported) dimenhyDRINATE (Dramamine) 50 Mg Tablet, 100 MG PO DAILY PRN for MIGRAINE, (Reported) Allergies Coded Allergies: No Known Allergies (Unverified , 08/17/16) Past Medical History Medical History per HPI Surgical History None Family History Significant Family History: No pertinent family hx Social History * Smoker: current smoker Alcohol: occationally Drugs: cocaine, heroin (prior, has not used in years) Recent Travel/Sick Contacts: Denies: Recent travel, Recent sick contacts Psychosocial History: Anxiety, Decreased mood, Depression, Prior suicide attempt A-FIB/CHADSVASC A-FIB History Current/History of A-Fib/PAF?: No Current PO Anticoag Therapy: No Age/Risk Factor Scoring CHADSVASC: CHADSVASC Response (Comments) Value Age Risk Factor Age < 65 years old 0 Gender Risk Factor Female 1 Hx of CHF No 0 Hx of HTN No 0 Hx of Stroke/TIA/or VTE No 0 Hx of Diabetes No 0 Hx of Vascular Disease No 0 Total 1 Treatment Treatment ordered: NONE Reason Anticoagulant not given: Not indicated/[id number] Review of Systems Constitutional: Denies: Chills, Fever, Night Sweats Eyes: Denies: Pain, Vision change ENT: Denies: Head Aches, Ear Pain, Dysphagia Skin: Denies: Rash, Lesions, Breakdown Pulmonary: Denies: Dyspnea, Cough Cardiovascular: Denies: Chest Pain, Palpitations, Orthopnea, Paroxysmal Noc. Dyspnea, Lt Headedness Gastrointestinal: Denies: Nausea, Vomiting, Abdominal Pain, Diarrhea Genitourinary: Denies: Dysuria, Frequency, Incontinence, Retention Hematologic: Denies: Bruising, Bleeding Excessively Endocrine: Denies: Polydipsia, Polyphagia, Polyuria, Heat Intolerance, Cold Intolerance, Other Endocrine Sx Musculoskeletal: Denies: Neck Pain, Back Pain, Joint Pain, Muscle Pain, Spasms Neurological: Denies: Weakness, Numbness, Change in speech, Confusion Psych: Reports: Anxiety, Depression, Thoughts of Self Harm (Not necessarily thinking of self harm but wishing for ) Physical Examination General Exam: Positive: Alert, No Acute Distress, Other (obese) Eye Exam: Negative: PERRLA, Conjunctiva & lids normal, EOMI, Sclera icteric, Ptosis, Other Eye Symptoms ENT Exam: Positive: Atraumatic, Mucous membr. moist/pink, Pharynx Normal Neck Exam: Positive: Supple; Negative: JVD, thyromegaly Chest Exam: Positive: Clear to auscultation, Normal air movement Heart Exam: Positive: Rate Normal, Regular Rhythm, Normal S1, Normal S2; Negative: Murmurs, Rubs Abdomen Exam: Positive: Normal bowel sounds, Soft; Negative: Tenderness, Hepatospenomegaly Extremity Exam: Positive: Normal pulses; Negative: Clubbing, Cyanosis, Edema Skin Exam: Positive: Nl turgor and temperature; Negative: Breakdown, Lesion Neuro Exam: Positive: Normal Gait, Normal Speech, Cranial Nerves 3-12 NL, Reflexes 2+ Psych Exam: Positive: Mental status NL, Mood NL, Oriented x 3 Vital Signs Vital Signs Date Time Temp Pulse Resp B/P (MAP) Pulse Ox O2 Delivery O2 Flow Rate FiO2 01/30/21 02:46 97.1 68 16 136/102 (113) 97 Room Air Laboratory Data Labs 24H Laboratory Tests 2 01/29/21 19:27: Nucleated Red Blood Cells % (auto) 0.0, Anion Gap 2L, Glomerular Filtration Rate > 60.0, Calcium Level 9.0, Total Bilirubin 0.3, Direct Bilirubin 0.1, Aspartate Amino Transf (AST/SGOT) 21, Alanine Aminotransferase (ALT/SGPT) 29, Alkaline Phosphatase 80, Total Protein 7.5, Albumin 4.1, Albumin/Globulin Ratio 1.2, Thyroid Stimulating Hormone (TSH) 7.600H, Salicylates Level 1.8L, Urine Opiates Screen NEGATIVE, Urine Methadone Screen NEGATIVE, Acetaminophen Level < 2.0L, Urine Barbiturates Screen NEGATIVE, Urine Phencyclidine Screen NEGATIVE, Urine Amphetamines Screen NEGATIVE, Urine Benzodiazepines Screen NEGATIVE, Urine Cocaine Metabolite Screen NEGATIVE, Urine Cannabinoids Screen NEGATIVE, Ethyl Alcohol Level < 0.003 01/30/21 00:47: Coronavirus (COVID-19)(PCR) NEGATIVE, Influenza Type A (RT-PCR) NEGATIVE, Influenza Type B (RT-PCR) NEGATIVE, Respiratory Syncytial Virus (PCR) NEGATIVE CBC/BMP Laboratory Tests 01/29/21 19:27 Assessment/Plan 35 yo W with a history of PSUD who recently relapsed and has used cocaine recently, history of depression and anxiety with two prior suicide attempts who [facility] for severe depression with passive suicidal ideation. She currently is physically in good health, had normal basic labs and has a negative physical ROS and examination. Medicine will sign off at this time and defer psychiatric assessment and treatment to the primary psych team. Plan / VTE VTE Prophylaxis Ordered?: No VTE Exclusion Mechanical Proph: Low Risk for VTE VTE Exclusion Pharmacological: At Low Risk for VTE GABRIEL JANE MD Jan 30, 2021 15:37
[2021-01-30 17:03] VITALS: BP 159/90
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
[2021-01-30 21:00] VITALS: BP 159/90
[2021-01-30] MEDS ORDERED: tiZANidine 4 MG TAB PO PRN (21:05)
[2021-01-30] MEDS: MAALOX 30 ML SUSP *UDC PO PRN (21:35)
[2021-01-30] MEDS: OLANZapine ORAL DISINTEGRATING TAB 5MG PO PRN (21:35)
[2021-01-31 06:31] VITALS: BP 135/79
[2021-01-31] MEDS: NICOTINE 21MG/24HR 1 EA TRANSDERMAL TD SCH (09:32)
[2021-01-31] MEDS: EXCEDRIN MIGRAINE TABLET PO PRN (09:33)
[2021-01-31] MEDS: OLANZapine ORAL DISINTEGRATING TAB 5MG PO PRN ×2 (14:36→21:32)
[2021-01-31] MEDS: MAALOX 30 ML SUSP *UDC PO PRN (14:36)
[2021-01-31 18:12] VITALS: BP 148/89
[2021-02-01 06:38] VITALS: BP 112/67
[2021-02-01] MEDS: ACETAMINOPHEN TAB 650MG DOSE (2X325MG) PO PRN ×2 (08:21→20:45)
[2021-02-01] MEDS: NICOTINE 21MG/24HR 1 EA TRANSDERMAL TD SCH (08:22)
--- NOTE | 2021-02-01 11:48 | MHIPN ---
[facility] PROGRESS NOTE DATE: 01/31/2021 VITAL SIGNS: Blood pressure 135/79, pulse 60, temperature 96.8. This is a video assessment, she is aware of it, agrees to it, and its limitations, she is in the hospital, I am at home. CHIEF COMPLAINT: Feels anxious. SUBJECTIVE: Seen for followup. Indicates has been feeling anxious, though says had slept a bit better last night. Remains worried, and currently has a migraine, says the light disturbs her, and that she switched off the light in the room, says that helped a bit, says has used tizanidine, and that she uses it regularly, three times a day, indicates at some point has been seen by neurology, also takes magnesium, which she says helps with this. Was able to speak with her 4-year-old, and her [id number], who is the grandmother of the older two children. She says she gets along with her, and that considers her as a support. Remains anxious, worried, mostly related to her situation, and the children. MENTAL STATUS EXAMINATION: Neat, cooperative, appears mildly uncomfortable, because of the migraine, fair eye contact, no agitation, no psychomotor retardation, she is coherent, overall less distressed than yesterday, denies any suicidal thoughts or intents, no firm plans at present, no homicidal ideas or intents, no evidence of any psychosis. Cognition grossly intact, judgment and insight remain compromised. ASSESSMENT: Other specified anxiety disorder. Other specified depressive disorder. Opioid use disorder. Cocaine use disorder. The possibility of bipolar disorder also needs to be taken into consideration, she indicates a history of mood fluctuations, particularly irritability, coupled with a decrease in need for sleep, which lasts for several days, is more irritable during that time, and this is when she has not been using either. Has had several psychotropics in the past, may need to review old records. PLAN: Continue current care for now, and observations, but most likely will require either an antidepressant or a mood stabilizer, essentially preferably done after reviewing old records or obtaining information regarding those records, and the regimen, and medications she has used. She is to be involved in individual, group, and milieu therapy. She will be seeing the assigned clinicians tomorrow, and further recommendations will be made. Will look at tizanidine being used three times a day rather than twice a day as needed, particularly if the pain persists.
[2021-02-01] MEDS: OLANZapine ORAL DISINTEGRATING TAB 5MG PO PRN (11:53)
[2021-02-01] MEDS: buPROPion **XL** TABLET 150MG (WELLBUTRIN XL) PO SCH (11:57)
--- NOTE | 2021-02-01 11:59 | MHIPN ---
[facility] PROGRESS [facility] DATE: 01/31/2021 This is an addendum to a note I dictated earlier today on Ms. Cardona. She was seen in person in the [facility]andez, belated from yesterday, she is seen in the presence of staff. I reiterated the assessment, and recommendations. She has had periods, when not using drugs or alcohol, when she has been anxious, has had trouble with sleep, has been irritable, coupled with periods when she has been depressed. May need to consider using an antidepressant or mood stabilizer, preferably after reviewing old records, including recent outpatient ones. She again spoke of difficulties with the discrepancies in the toxicology results, as well as concerns at work, and the sense that there may not be a barrier with Child Protective Services. Further recommendations will be made depending on the clinical picture, and she will be seeing the assigned clinicians tomorrow.
--- NOTE | 2021-02-01 15:14 | MHIPNPDOC ---
[facility] Progress Note Progress Note DATE OF SERVICE: 02/01/21 HISTORY: Patient is a 35 y/o woman with a history of substance use disorder (reports was 5 years sober until a relapse of cocaine in November), reports social drinking and a PMH of migraines (supp. imitrex prn), cervical trauma, "reported white matter disease". She presented to the ED at the urgency of outpatient provider KIM Buitrago due to reported suicidal thoughts in context of ongoing CPS case. Has tried multiple antidepressants without benefit reported. Interval: Charts reviewed. Consents to start wellbutrin 150 mg xl for mood, also reports low mood in season months, feelings of emptiness, passive suicidal thoughts, anxiety and stimulant use disorder. Side effects discussed with patient, denies hx. of eating disorder, epilepsy, allergy, heavy alcohol use. Educated on risks of lowered seizure threshold, negative for alcohol on toxicology screen prior to admission. VITAL SIGNS: See below. NEW TEST RESULTS: CURRENT MEDICATIONS: See below. MENTAL STATUS EXAMINATION: Patient is a 35-year old female, who appears her stated age, long hair, fair hygiene, dressed approproiately for weather. Speech: Is fluent, linear, mildly slowed Language skills are intact Thought processes including: linear, logical Thought content: passive suicidal ideations, denies intent or plan Abstract reasoning, and computation: intact Description of associations: normal Description of abnormal or psychotic thoughts: None Judgment: Poor, improving Insight: Fair Orientation: to person, place and time Recent and remote memory: intact Attention span and concentration: fair Language: fair Fund of knowledge: average based on interview Mood: low Affect: depressed, labile DIAGNOSES: 1. MDD, recurrent, moderate, seasonal pattern R/O substance induced mood disorder 2. Cocaine use disorder, mild 3. R/O Borderline personality disorder R/O alcohol use disorder ASSESSMENT: Seen with tentering machine off bearer. Reports baseline periods of depression, anhed onia, low energy, erratic sleep/appetite on most days during the winter months despite 5 years sobriety, with periods of hopelessness and has failed multiple SSRIs, agrees to start wellbutrin 150 mg xl for mood and anxiety after being made aware of label side effects. Recent pending CPS case is contributing factor to worsening of baseline depression. Borderline personality disorder should be ruled out due to impulsive behavior, reported feelings of emptiness, reports substance use relapse has no clear trigger apart from feeling depression not fully controlled with medications outpatient. Requires continued stay for safety. MANAGEMENT PLAN: Start Wellburtrin xl 150 mg po daily for depression with seasonal pattern and cocaine use disorder. Continue motivational and supportive therapy. Discussed in treatment meeting for safety planning. Will consider medicine consult for elevated TSH of 7.6 TIME SPENT: 25 minutes. Vital Signs Vital Signs Date Time Temp Pulse Resp B/P (MAP) Pulse Ox O2 Delivery O2 Flow Rate FiO2 02/01/21 06:38 97.2 63 17 112/67 (82) 01/31/21 06:31 100 Room Air Current Medications Current Medications Medications (Trade) Dose Ordered Sig/Alexandra Route PRN Reason Start Time Stop Time Status Last Admin Dose Admin Acetaminophen (Tylenol Tab) 650 mg Q6HP PRN PO HEADACHE or MILD DISCOMFORT 01/30/21 02:10 02/01/21 08:21 Acetaminophen/ Aspirin/Caffeine (Excedrin Migraine) 2 ea BID PRN PO MIGRAINE 01/30/21 03:30 01/31/21 09:33 Al Hydrox/Mg Hydrox/Simethicone (Mylanta) 30 ml Q4HP PRN PO HEARTBURN/INDIGESTION 01/30/21 02:10 01/31/21 14:36 Albuterol Sulfate (Proventil, Ventolin Hfa) 2 puff Q4HP PRN INH SHORTNESS OF BREATH 01/30/21 02:10 Bupropion HCl (Wellbutrin Xl) 150 mg QAM PO 02/01/21 09:00 02/01/21 11:57 Home Med (Home Med List Complete!) ASDIRECTED XX 01/29/21 23:05 01/29/21 23:03 DC Lorazepam (Ativan) 1 mg Q4HP PRN PO ANXIETY/AGITATION 01/30/21 02:10 01/30/21 17:41 DC 01/30/21 17:02 Magnesium Hydroxide (Milk Of Magnesia) 30 ml DAILYPRN PRN PO CONSTIPATION 01/30/21 02:10 Nicotine (Nicoderm Cq 21mg) 1 patch DAILY TD 01/30/21 09:00 02/01/21 08:22 Olanzapine (ZyPREXA ZYDIS) 5 mg Q4HP PRN PO ANXIETY/AGITATION 01/30/21 17:40 02/01/21 11:53 Tizanidine HCl (Zanaflex) 2 mg BIDP PRN PO MODERATE PAIN (PS 5-7) 01/30/21 21:05 02/01/21 21:00 Trazodone HCl (Desyrel) 50 mg QHSP PRN PO INSOMNIA 01/30/21 02:10 Allergies Coded Allergies: No Known Allergies (Unverified , 08/17/16) MARCUS OCAMPO MD Feb 01, 2021 15:14
[2021-02-01 17:37] VITALS: BP 138/83
[2021-02-01 18:22] VITALS: BP 99/69
[2021-02-02 06:41] VITALS: BP 131/77
[2021-02-02] MEDS: NICOTINE 21MG/24HR 1 EA TRANSDERMAL TD SCH (08:04)
[2021-02-02] MEDS: OLANZapine ORAL DISINTEGRATING TAB 5MG PO PRN ×2 (08:04→19:05)
[2021-02-02] MEDS: ACETAMINOPHEN TAB 650MG DOSE (2X325MG) PO PRN ×2 (08:04→22:50)
[2021-02-02] MEDS: buPROPion **XL** TABLET 150MG (WELLBUTRIN XL) PO SCH (08:05)
--- NOTE | 2021-02-02 15:46 | MHIPNPDOC ---
[facility] Progress Note Progress Note DATE OF SERVICE: 02/02/21 HISTORY: Patient is a 35 y/o woman with a history of substance use disorder (reports was 5 years sober until a relapse of cocaine in November), reports social drinking and a PMH of migraines (supp. imitrex prn), cervical trauma, "reported white matter disease". She presented to the ED at the urgency of outpatient provider KIM Buitrago due to reported suicidal thoughts in context of ongoing CPS case. Has tried multiple antidepressants without benefit reportedly. Interval: Charts reviewed. Says she wants to switch from [employer] to [facility] for addictions treatment. She also says she has some concerns returning back to work due to colleagues possib ly finding out about her treatment as it was in the same building. Overall though she says her sleep is good, appetite is good no physical concerns or headaches, tolerating medication without side effects. Mood is even reportedly, states she has an outpatient appointment at in the week which is being verified. Currently denies suicidal ideation, plan or intent. VITAL SIGNS: See below. NEW TEST RESULTS: CURRENT MEDICATIONS: See below. MENTAL STATUS EXAMINATION: Patient is a 35-year old female, who appears her stated age, long hair, good hygiene Speech: Is fluent, linear, mildly slowed Language skills are intact Thought processes including: linear, logical Thought content: passive suicidal ideations, denies intent or plan Abstract reasoning, and computation: intact Description of associations: normal Description of abnormal or psychotic thoughts: None Judgment: Fair Insight: Fair Orientation: to person, place and time Recent and remote memory: intact Attention span and concentration: fair Language: fair Fund of knowledge: average based on interview Mood: "a little anxious" Affect: Mildly anxious, mildly constricted, mood congruent DIAGNOSES: 1. MDD, recurrent, moderate, seasonal pattern R/O substance induced mood disorder 2. Cocaine use disorder, mild 3. R/O Borderline personality disorder R/O alcohol use disorder ASSESSMENT: Mood is even apart from some situational anxiety about returning to work in context context of life stressors. Tolerating medication without side effects. Not endorsing suicidal ideation, goal oriented to continue with outpatient treatment. MANAGEMENT PLAN: Continue Wellburtrin xl 150 mg po daily for depression with seasonal pattern and cocaine use disorder. Continue motivational and supportive therapy. Discussed in treatment meeting for safety planning. Repeat TSH mildly elevated will have to be evaluated on outpatient basis. TIME SPENT: 25 minutes. Vital Signs Vital Signs Date Time Temp Pulse Resp B/P (MAP) Pulse Ox O2 Delivery O2 Flow Rate FiO2 02/02/21 06:41 97.3 58 18 131/77 (95) 98 Room Air Laboratory Data 24H Labs Laboratory Tests 2 02/02/21 06:34: Thyroid Stimulating Hormone (TSH) 4.570H Current Medications Current Medications Medications (Trade) Dose Ordered Sig/Alexandra Route PRN Reason Start Time Stop Time Status Last Admin Dose Admin Acetaminophen (Tylenol Tab) 650 mg Q6HP PRN PO HEADACHE or MILD DISCOMFORT 01/30/21 02:10 02/02/21 08:04 Acetaminophen/ Aspirin/Caffeine (Excedrin Migraine) 2 ea BID PRN PO MIGRAINE 01/30/21 03:30 01/31/21 09:33 Al Hydrox/Mg Hydrox/Simethicone (Mylanta) 30 ml Q4HP PRN PO HEARTBURN/INDIGESTION 01/30/21 02:10 01/31/21 14:36 Albuterol Sulfate (Proventil, Ventolin Hfa) 2 puff Q4HP PRN INH SHORTNESS OF BREATH 01/30/21 02:10 Bupropion HCl (Wellbutrin Xl) 150 mg QAM PO 02/01/21 09:00 02/02/21 08:05 Home Med (Home Med List Complete!) ASDIRECTED XX 01/29/21 23:05 01/29/21 23:03 DC Lorazepam (Ativan) 1 mg Q4HP PRN PO ANXIETY/AGITATION 01/30/21 02:10 01/30/21 17:41 DC 01/30/21 17:02 Magnesium Hydroxide (Milk Of Magnesia) 30 ml DAILYPRN PRN PO CONSTIPATION 01/30/21 02:10 Nicotine (Nicoderm Cq 21mg) 1 patch DAILY TD 01/30/21 09:00 02/02/21 08:04 Olanzapine (ZyPREXA ZYDIS) 5 mg Q4HP PRN PO ANXIETY/AGITATION 01/30/21 17:40 02/02/21 08:04 Tizanidine HCl (Zanaflex) 2 mg BIDP PRN PO MODERATE PAIN (PS 5-7) 01/30/21 21:05 02/01/21 21:00 DC Trazodone HCl (Desyrel) 50 mg QHSP PRN PO INSOMNIA 01/30/21 02:10 Allergies Coded Allergies: No Known Allergies (Unverified , 08/17/16) MARCUS OCAMPO MD Feb 02, 2021 15:45
[2021-02-02 16:17] VITALS: BP 120/86
[2021-02-02] MEDS: traZODone 50 MG TAB PO PRN (21:23)
[2021-02-03] MEDS: OLANZapine ORAL DISINTEGRATING TAB 5MG PO PRN (06:33)
[2021-02-03 06:48] VITALS: BP 116/67
[2021-02-03] MEDS: NICOTINE 21MG/24HR 1 EA TRANSDERMAL TD SCH (08:25)
[2021-02-03] MEDS: buPROPion **XL** TABLET 150MG (WELLBUTRIN XL) PO SCH (08:25)
[2021-02-03] MEDS: ACETAMINOPHEN TAB 650MG DOSE (2X325MG) PO PRN ×2 (08:26→14:21)
--- NOTE | 2021-02-03 09:23 | MHIPNPDOC ---
[facility] Progress Note Progress Note DATE OF SERVICE: 02/03/21 HISTORY: Patient is a 35 y/o woman with a history of substance use disorder (reports was 5 years sober until a relapse of cocaine in November), reports social drinking and a PMH of migraines (supp. imitrex prn), cervical trauma, "reported white matter disease". She presented to the ED at the urgency of outpatient provider KIM Buitrago due to reported suicidal thoughts in context of ongoing CPS case. Has tried multiple antidepressants without benefit reportedly. Interval: Charts reviewed. Spoke with patient with talent specialist present, states she still has some anxiety and concerns for leaving wanted to speak in a private room so we accommodated this with a talent specialist. She has been taking as needed olanzapine for anxiety 5 mg with reportedly good effect. We discussed the side effects of the medication in detail including NMS, EPS, metabolic side effects, with continued use risk for tardive dyskinesia which can be permanent. Also recommended getting fasting labs and EKG as screening. She agreed to this plan and having a standing dose of olanzapine 5 mg nightly, as alternative to the as needed. VITAL SIGNS: See below. NEW TEST RESULTS: CURRENT MEDICATIONS: See below. MENTAL STATUS EXAMINATION: Patient is a 35-year old female, who appears her stated age, long hair, good h ygiene, poor eye contact. Speech: Is fluent, linear, mildly slowed Language skills are intact Thought processes including: linear, logical Thought content: Denies suicidal ideations, denies intent or plan Abstract reasoning, and computation: intact Description of associations: normal Description of abnormal or psychotic thoughts: None Judgment: Improving Insight: Fair Orientation: to person, place and time Recent and remote memory: intact Attention span and concentration: fair Language: fair Fund of knowledge: average based on interview Mood: "Still anxious but that as needed medication helps" Affect: Less anxious,constricted, labile and tearful at times when discussing her current situation with CPS, mood congruent DIAGNOSES: 1. MDD, recurrent, moderate, seasonal pattern R/O substance induced mood disorder 2. Cocaine use disorder, mild 3. R/O Borderline personality disorder R/O alcohol use disorder ASSESSMENT: Patient continues to have anxiety which is improving with olanzapine, agrees to starting the medication at night after being made aware of common rare side effects. Agrees to lab testing to get a baseline metabolic profile, also EKG. patient needs extended stay to treat anxiety symptoms as has concerns for symptoms worsening on discharge. MANAGEMENT PLAN: Continue Wellburtrin xl 150 mg po daily for depression with seasonal pattern and cocaine use disorder. Pending fasting lab work and EKG. Continue to work on coordination of care with treatment team. TIME SPENT: 30 minutes. Vital Signs Vital Signs Date Time Temp Pulse Resp B/P (MAP) Pulse Ox O2 Delivery O2 Flow Rate FiO2 02/03/21 06:48 97.7 70 16 116/67 (83) 99 Room Air Current Medications Current Medications Medications (Trade) Dose Ordered Sig/Alexandra Route PRN Reason Start Time Stop Time Status Last Admin Dose Admin Acetaminophen (Tylenol Tab) 650 mg Q6HP PRN PO HEADACHE or MILD DISCOMFORT 01/30/21 02:10 02/03/21 08:26 Acetaminophen/ Aspirin/Caffeine (Excedrin Migraine) 2 ea BID PRN PO MIGRAINE 01/30/21 03:30 01/31/21 09:33 Al Hydrox/Mg Hydrox/Simethicone (Mylanta) 30 ml Q4HP PRN PO HEARTBURN/INDIGESTION 01/30/21 02:10 01/31/21 14:36 Albuterol Sulfate (Proventil, Ventolin Hfa) 2 puff Q4HP PRN INH SHORTNESS OF BREATH 01/30/21 02:10 Bupropion HCl (Wellbutrin Xl) 150 mg QAM PO 02/01/21 09:00 02/03/21 08:25 Home Med (Home Med List Complete!) ASDIRECTED XX 01/29/21 23:05 01/29/21 23:03 DC Lorazepam (Ativan) 1 mg Q4HP PRN PO ANXIETY/AGITATION 01/30/21 02:10 01/30/21 17:41 DC 01/30/21 17:02 Magnesium Hydroxide (Milk Of Magnesia) 30 ml DAILYPRN PRN PO CONSTIPATION 01/30/21 02:10 Nicotine (Nicoderm Cq 21mg) 1 patch DAILY TD 01/30/21 09:00 02/03/21 08:25 Olanzapine (ZyPREXA ZYDIS) 5 mg Q4HP PRN PO ANXIETY/AGITATION 01/30/21 17:40 02/03/21 06:33 Olanzapine (ZyPREXA) 5 mg QHS PO 02/03/21 21:00 Tizanidine HCl (Zanaflex) 2 mg BIDP PRN PO MODERATE PAIN (PS 5-7) 01/30/21 21:05 02/01/21 21:00 DC Trazodone HCl (Desyrel) 50 mg QHSP PRN PO INSOMNIA 01/30/21 02:10 02/02/21 21:23 Allergies Coded Allergies: No Known Allergies (Unverified , 08/17/16) MARCUS OCAMPO MD Feb 03, 2021 09:23
[2021-02-03 11:11] LABS: CHOLESTEROL RISK RATIO 4.521 (<5)
[2021-02-03 16:13] VITALS: BP 136/78
[2021-02-03] MEDS: IBUPROFEN 600MG TAB PO PRN (18:19)
[2021-02-03] MEDS: OLANZapine 5 MG TAB PO SCH (20:17)
[2021-02-03] MEDS: traZODone 50 MG TAB PO PRN (20:17)
--- NOTE | 2021-02-03 23:46 | ECGEPIP ---
[facility] Test Date: 2021-02-03 Pat Name: ELMIRA MILIAN Department: Room: [place] [address] Gender: Female [employer]: LAVON : [id number] Requested By: MARCUS Herr Order Number: [id number] Reading MD: Gustavo Sanchez Measurements Intervals [place] Rate: 64 P: 69 MO: 146 QRS: 87 QRSD: 86 T: 72 QT: 412 QTc: 425 Interpretive Statements Sinus rhythm with occasional premature ventricular complex 1. Electronically Signed on 02-03-2021 23:45:45 EDT by Gustavo Sanchez
[2021-02-04 06:43] VITALS: BP 129/66
[2021-02-04] MEDS: buPROPion **XL** TABLET 150MG (WELLBUTRIN XL) PO SCH (08:02)
[2021-02-04] MEDS: IBUPROFEN 600MG TAB PO PRN ×2 (08:02→20:34)
[2021-02-04] MEDS: NICOTINE 21MG/24HR 1 EA TRANSDERMAL TD SCH (08:02)
[2021-02-04] MEDS: OLANZapine ORAL DISINTEGRATING TAB 5MG PO PRN ×2 (10:04→22:17)
[2021-02-04] MEDS: ACETAMINOPHEN TAB 650MG DOSE (2X325MG) PO PRN ×2 (10:06→17:09)
--- NOTE | 2021-02-04 17:47 | MHIPNPDOC ---
[facility] Progress Note Progress Note DATE OF SERVICE: 02/04/21 HISTORY: Patient is a 35 y/o woman with a history of substance use disorder (reports was 5 years sober until a relapse of cocaine in November), reports social drinking and a PMH of migraines (supp. imitrex prn), cervical trauma, "reported white matter disease". She presented to the ED at the urgency of outpatient provider KIM Buitrago due to reported suicidal thoughts in context of ongoing CPS case. Has tried multiple antidepressants without benefit reportedly. Interval: Charts reviewed. No acute overnight events. States she continues to improve on the unit, appears more bright in affect and cheerful today on interview. Does report increased anxiety when thinking about her pending CPS involvement. Aware of upcoming outpatient appointments with plan to possibly discharge tomorrow. Denies any suicidal thoughts. VITAL SIGNS: See below. NEW TEST RESULTS: CURRENT MEDICATIONS: See below. MENTAL STATUS EXAMINATION: Patient is a 35-year old female, who appears her stated age, long hair, good hygiene, improved eye contact, appears more bright and animated. Speech: Is fluent, linear, normal rate. Language skills are intact Thought processes including: linear, logical Thought content: Denies suicidal ideations, denies intent or plan Abstract reasoning, and computation: intact Description of associations: normal Description of abnormal or psychotic thoughts: None Judgment: Fair Insight: Good Orientation: to person, place and time Recent and remote memory: intact Attention span and concentration: Good Language: fair Fund of knowledge: average based on interview Mood: "doing okay" Affect: Euthymic, bright, full, was smiling and laughing at times appropriately DIAGNOSES: 1. MDD, recurrent, moderate, seasonal pattern R/O substance induced mood disorder 2. Cocaine use disorder, mild 3. R/O Borderline personality disorder R/O alcohol use disorder ASSESSMENT: Patient shows significant improvement in anxiety with standing olanzapine nightly, mood is also improved, she is aware of upcoming appointments on the looks forward to celebrating her mom's birthday over the weekend reportedly. No suicidal ideation intent or plan, denies impulsivity. MANAGEMENT PLAN: Continue Wellburtrin xl 150 mg po daily for depression with seasonal pattern and cocaine use disorder. Continue olanzapine for anxiety. Reordered pending fasting lab, a1c wnl, EKG unremarkable. Continue to work on coordination of care with treatment team for possible pending discharge tomorrow. TIME SPENT: 35 minutes. Vital Signs Vital Signs Date Time Temp Pulse Resp B/P (MAP) Pulse Ox O2 Delivery O2 Flow Rate FiO2 02/04/21 06:43 97.4 59 18 129/66 (87) 97 Room Air Current Medications Current Medications Medications (Trade) Dose Ordered Sig/Alexandra Route PRN Reason Start Time Stop Time Status Last Admin Dose Admin Acetaminophen (Tylenol Tab) 650 mg Q6HP PRN PO HEADACHE or MILD DISCOMFORT 01/30/21 02:10 02/04/21 17:09 Acetaminophen/ Aspirin/Caffeine (Excedrin Migraine) 2 ea BID PRN PO MIGRAINE 01/30/21 03:30 01/31/21 09:33 Al Hydrox/Mg Hydrox/Simethicone (Mylanta) 30 ml Q4HP PRN PO HEARTBURN/INDIGESTION 01/30/21 02:10 01/31/21 14:36 Albuterol Sulfate (Proventil, Ventolin Hfa) 2 puff Q4HP PRN INH SHORTNESS OF BREATH 01/30/21 02:10 Bupropion HCl (Wellbutrin Xl) 150 mg QAM PO 02/01/21 09:00 02/04/21 08:02 Home Med (Home Med List Complete!) ASDIRECTED XX 01/29/21 23:05 01/29/21 23:03 DC Ibuprofen (Advil) 600 mg Q12HP PRN PO severe neck pain 02/03/21 17:55 02/04/21 08:02 Lorazepam (Ativan) 1 mg Q4HP PRN PO ANXIETY/AGITATION 01/30/21 02:10 01/30/21 17:41 DC 01/30/21 17:02 Magnesium Hydroxide (Milk Of Magnesia) 30 ml DAILYPRN PRN PO CONSTIPATION 01/30/21 02:10 Nicotine (Nicoderm Cq 21mg) 1 patch DAILY TD 01/30/21 09:00 02/04/21 08:02 Olanzapine (ZyPREXA ZYDIS) 5 mg Q4HP PRN PO ANXIETY/AGITATION 01/30/21 17:40 02/04/21 10:04 Olanzapine (ZyPREXA) 5 mg QHS PO 02/03/21 21:00 02/03/21 20:17 Tizanidine HCl (Zanaflex) 2 mg BIDP PRN PO MODERATE PAIN (PS 5-7) 01/30/21 21:05 02/01/21 21:00 DC Trazodone HCl (Desyrel) 50 mg QHSP PRN PO INSOMNIA 01/30/21 02:10 02/03/21 20:17 Allergies Coded Allergies: No Known Allergies (Unverified , 08/17/16) MARCUS OCAMPO MD Feb 04, 2021 17:47
[2021-02-04 18:21] VITALS: BP 150/80
[2021-02-04] MEDS: traZODone 50 MG TAB PO PRN (20:32)
[2021-02-04] MEDS: OLANZapine 5 MG TAB PO SCH (20:32)
[2021-02-05 06:42] VITALS: BP 139/83
[2021-02-05 08:24] LABS: CHOLESTEROL RISK RATIO 5.023 (<5)
[2021-02-05] MEDS: NICOTINE 21MG/24HR 1 EA TRANSDERMAL TD SCH (08:30)
[2021-02-05] MEDS: buPROPion **XL** TABLET 150MG (WELLBUTRIN XL) PO SCH (08:31)
[2021-02-05] MEDS ORDERED: OLAN1TAB16 PO (08:48)
[2021-02-05] MEDS ORDERED: BUPR150T12 PO (08:48)
[2021-02-05] MEDS ORDERED: NICO21PAT TD (08:48)
[2021-02-05] MEDS ORDERED: TRAZ-252 PO (08:48)
[2021-02-05] MEDS: IBUPROFEN 600MG TAB PO PRN (08:54)
--- NOTE | 2021-02-06 19:24 | MHDSPDOC ---
[facility] Discharge Summary Discharge Summary DATE OF ADMISSION: Jan 30, 2021 at 02:06 DATE OF DISCHARGE: Feb 05, 2021 at 12:08 DISCHARGE DIAGNOSES: 1. Major depressive disorder, recurrent, moderate, seasonal pattern, with anxious distress 2. Unspecified trauma and stress related disorder 3. Cocaine use disorder, in early remission 4. Opioid use disorder, in remission 5. Tobacco use disorder REASON FOR ADMISSION: Per PSA note: "Pt had therapy appointment today with addictions counselor and she suggested the pt report here for [facility] due to severe depression and SI. PSA met with pt at bedside who stated "I am at a breaking point, I know myself well enough that I know I am not okay." Pt reports that she has been dealing with a lot of stress lately, most recently she is dealing with an open CPS case against her and she also works at [employer]. Pt reported that she was informed yesterday that they would be filing a petition for neglect for ongoing drug use. Pt stated that she has been sober for the last 5 years until November of this year when she utilized cocaine. Pt explains that although this is not her drug of choice she still regrets the decision. Pt stated that the very next day after the use CPS was on her doorsteps. Pt reports that they has been the blunt of her stress, but everything is just piling up. Pt denies having a plan, but stated that she has attempted suicide multiple times in the past, and all times it was a very impulsive decision, and she didn't plan it out. Pt reports that she last attempted 5 years ago via OD, and about a year prior to that she had a pistol to her head loaded and the only reason she is still living is because the gun didn't go off. Pt denies HI and current AH/VH but describes these "episodes" that she would have about 2.5 years ago where she would "go on autopilot for several days, and then would wake up and sleep for an entire 24 hours and then would not remember that." PT stated that her neurologist told her that he didn't know if it was some type of seizure or if it was some type of psychotic break. Pt stated that because of her Hx and impulsivity she does not feel safe being discharged at this time and believes she would benefit from an inpatient stay." CONSULTANTS INVOLVED: See medical H&P by hospitalist TREATMENT AND PROGRESS ON THE UNIT : Patient was admitted to the [facility] on a 9.39 Legal status and she was afforded the following treatment modalities: 1. Individual therapy 2. Group therapy 3. Medication management 4. Milieu therapy 5. Safe environment 6. Substance abuse education and treatment, nicotine patch given daily HOSPITAL COURSE: Patient was admitted on 939 status [facility] after being medically cleared started on home medications, basic labs reviewed. Patient reported situational anxiety related to pending CPS case for having a positive diazepam screen on addictions, despite stating she is not taking in any benzodiazepines. Case was reviewed with social work and was determined she could stay in her home and the kids with sleep at their father's home at this time. Education, counseling was provided for substance use, was able to identify triggers for substance abuse including being around boyfriend, but states he is also seeking treatment for his addictions, she is using skills from her condition clinic, has been able to remain clean. Initially reported chronic depressive symptoms and anxiety, with a seasonal pattern, also history of intrusive PTSD symptoms, does not meet full criteria for PTSD. She was agreeable to starting Wellbutrin 150 mg XL for stimulant cravings and mood with seasonal pattern, also for anxiety symptoms after being aware of common and rare side effects, also aware of risks with alcohol and other stimulants. She tolerated the medication without side effects endorsed improvement in mood and anxiety symptoms, describing CPS case was less labile and tearful and more goal oriented towards recovery and following through treatment. Social work also helped establish a new outpatient treatment center program for addictions due to concern of false positive diazepam on testing. Patient day she was interviewed in a private room with a strategy director. She was also started on olanzapine 5 mg nightly for anxiety, after testing for lipid panel (which was elevated, be monitored for continued elevation with primary care, with consideration of discontinuation if she is stable on her Wellbutrin regimen for an extended period of time, to reduce risk of metabolic side effects and weight gain, also made aware of risk for EPS, NMS, TD which can be permanent, cardiac arrhythmias, and other known side effects). Patient tolerated olanzapine well. During course of stay depression improved with Wellbutrin, and anxiety improved with olanzapine, was able to have improved sleep, appetite remains stable, socialized on the milieu and went to groups. On day of discharge she denied depression, anxiety, insomnia, suicidal or homicidal ideations intent or plan, delusions. Reports she felt safe for discharge, which was improved as compared to feeling apprehensive early on on admission. DISCHARGE ASSESSMENT: MENTAL STATUS EXAMINATION ON DISCHARGE: Today's interview patient is alert and oriented, dressed appropriately, good hygiene and grooming. Even affect, pleasant, and engaged in interview of discharge planning, denies depression and anxiety, denies suicidal or homicidal ideation, plan or intent. He has not observed any symptoms of sid or psychosis, dissociations, ruminations, bizarre thinking, or logical thoughts. Judgment and insight are good. Patient has normal mentation, declines further hospital stay despite being offered. Patient is encouraged to return to the hospital if symptoms worsen or change encouraged to call the unit if she feels the need to speak with a provider for questions regarding medications or care. MEDICATIONS ON DISCHARGE: See medication reconciliation PLAN/FOLLOWUP ARRANGEMENTS: Return for outpatient appointment with her therapist Donnell Justin February 08, 2021 at 3 PM, [facility], with Tiesha February 08, 2021 at 9 AM, medical appointment at [facility] February 09, 2021 at 2 PM. CSSRS: Wish to be : no Nonspecific active suicidal thoughts: Lifetime attempts: 1x remote overdose while intoxicated Interrupted attempts: 0 point Aborted attempts: 0 Preparatory acts of behavior: none Taking into consideration safety state, status, modifiable and nonmodifiable risk factors patient is low risk on discharge according to the Jean suicide evaluation. The amount of time spent in the coordination of care for this patient was a pproximately 40 minutes. ETOH/Disorder Med Rx ETOH/DRUG DISORDER RX: Given to pt at d/c (wellbutrin, nicotine patch) Vital Signs/I&Os Vital Signs Date Time Temp Pulse Resp B/P (MAP) Pulse Ox O2 Delivery O2 Flow Rate FiO2 02/05/21 06:42 98.1 68 18 139/83 (101) 97 Room Air Laboratory Data Labs 24H Laboratory Tests 2 02/05/21 07:24: Triglycerides Level 249H, Total Cholesterol 211H, LDL Cholesterol 119H, Non-HDL Cholesterol (LDL + VLDL) 169, Total HDL Cholesterol 42, Cholesterol/HDL Ratio 5.023H Medications Scheduled Bupropion Hcl (Bupropion Xl) 150 Mg Tab.er.24h, 150 MG PO QAM for depression, #7 Magnesium Oxide (Magnesium Oxide) 250 Mg Tablet, 250 MG PO DAILY, (Reported) Nicotine (Nicotine Patch) 21 Mg Patch.td24, 1 PATCH TD DAILY for tobacco use, #10 Olanzapine (Olanzapine) 5 Mg Tablet, 5 MG PO QHS for anxiety, #7 Scheduled PRN Acetaminophen (Tylenol Extra Strength) 500 Mg Tablet, 1,000 MG PO Q6H PRN for HEADACHE OR PAIN, (Reported) Albuterol Sulfate (Proair Hfa) 8.5 Gm Hfa.aer.ad, 2 PUFF INH Q4-6HP PRN for WHEEZING, (Reported) Aspirin/Acetaminophen/Caffeine (Excedrin Migraine Caplet) 1 Each Tablet, 2 TAB PO BID PRN for HEADACHE, (Reported) Sumatriptan Succinate (Sumatriptan Succinate) 100 Mg Tablet, 100 MG PO ASDIRECTED PRN for MIGRAINE, (Reported) Tizanidine HCl (Tizanidine HCl) 2 Mg Tablet, 2 MG PO TID PRN for MUSCLE SPASMS, (Reported) Trazodone HCl (Trazodone HCl) 50 Mg Tablet, 50 MG PO QHSP PRN for INSOMNIA, #7 dimenhyDRINATE (Dramamine) 50 Mg Tablet, 100 MG PO DAILY PRN for MIGRAINE, (Reported) Allergies Coded Allergies: No Known Allergies (Unverified , 08/17/16) MARCUS OCAMPO MD Feb 05, 2021 12:46
== END 2021-02-05 12:08 | disposition home or self-care (01) | DRG 751 ==
LOC: M ED 18:03 → M ED INP 01-30 02:06 → M PSY 01-30 02:42
PROVIDERS: ADMIT Psychiatry & Neurology Psychiatry; ATTEND Student in an Organized Health Care Education/Training Program
DX: F33.1 Major depressive disorder, recurrent, moderate (principal); R45.851 Suicidal ideations; F11.11 Opioid abuse, in remission; F43.9 Reaction to severe stress, unspecified; F17.200 Nicotine dependence, unspecified, uncomplicated; F60.3 Borderline personality disorder; F14.11 Cocaine abuse, in remission; Z63.79 Other stressful life events affecting family and household; Z79.82 Long term (current) use of aspirin; Z79.899 Other long term (current) drug therapy; Z20.822 Contact with and (suspected) exposure to COVID-19; Z91.5 Personal history of self-harm

== ENCOUNTER 2021-06-14 16:49 | Emergency (ER) | payer MEDICAID, OTHER ==
[~2021-06-14] VITALS: Ht 170.2 cm; Wt 99.4 kg
[2021-06-14 16:49] VITALS: BP 172/92
[~2021-06-14 16:49] MED LIST changes: +BUPR150T12 PO; +DRAM50TA9 PO; +ESSE250T PO; +NICO21PAT TD; +OLAN1TAB16 PO; +SUMA100T2 PO; +TRAZ-252 PO
[2021-06-14] MEDS ORDERED: BUSP15TA47 (17:12)
[2021-06-14] MEDS ORDERED: LEVO25TA5 (17:12)
[2021-06-14] MEDS ORDERED: HYDR-3363 (17:12)
== END 2021-06-14 17:30 | disposition left against medical advice (07) ==
LOC: M ED 16:49
DX: Z53.29 Procedure and treatment not carried out because of patient's decision for other reasons (principal)

== ENCOUNTER 2022-04-25 09:20 | Inpatient (IN) | payer MEDICAID, OTHER ==
[~2022-04-25] VITALS: Ht 170.2 cm; Wt 100.0 kg
[~2022-04-25 09:20] MED LIST changes: +BUSP15TA47; +EXCETAB32 PO; -EXCETAB33 PO; +HYDR-3363; +LEVO25TA5
[2022-04-25] MEDS ORDERED: LORazepam 2 MG/ML VIAL IV STA ×2 (09:39→10:42)
[2022-04-25 10:15] LABS: BASO # 0.1 10^3/uL (0.0-0.2); BASO % 0.7 % (0.0-1.0); EOS # 0.2 10^3/uL (0.0-0.5); EOS % 2.7 % (0.0-3.0); HEMATOCRIT 41.1 % (36.0-47.0); HEMOGLOBIN 13.2 g/dl (12.0-15.5); LYMPH % 23.3 % (24.0-44.0); MEAN CORPUSCULAR HEMOGLOBIN 26.7 pg (27.0-33.0); MEAN CORPUSCULAR HGB CONC 32.1 g/dl (32.0-36.5); MEAN CORPUSCULAR VOLUME 83.2 fl (80.0-96.0); MONO # 0.5 10^3/uL (0.0-0.8); MONO % 5.3 % (2.0-8.0); NEUTROPHILS # 5.8 10^3/uL (1.5-8.5); NEUTROPHILS % 67.8 % (36.0-66.0); PLATELET COUNT, AUTOMATED 331 10^3/uL (150-450); RED BLOOD COUNT 4.94 10^6/uL (4.00-5.40); WHITE BLOOD COUNT 8.6 10^3/uL (4.0-10.0)
[2022-04-25 11:06] LABS: CK-MB VALUE MASS < 1.0 NG/ML (<3.6); CPK CREATINE PHOSPHOKINASE 99 U/L (26-192); MB/CK RELATIVE INDEX 1.01 (< OR =4)
[2022-04-25 11:17] LABS: ALBUMIN 3.7 GM/DL (3.2-5.2); ALT/SGPT 24 U/L (12-78); BILIRUBIN,DIRECT < 0.1 MG/DL (0.0-0.2); BILIRUBIN,TOTAL 0.3 MG/DL (0.2-1.0); BLOOD UREA NITROGEN 10 MG/DL (7-18); CALCIUM LEVEL 9.5 MG/DL (8.5-10.1); CARBON DIOXIDE LEVEL 23 MEQ/L (21-32); CHLORIDE LEVEL 108 MEQ/L (98-107); CREATININE FOR GFR 1.38 MG/DL (0.55-1.30); FREE T4 0.39 NG/DL (0.76-1.46); GLOMERULAR FILTRATION RATE 45.8 (>60); GLUCOSE, FASTING 101 MG/DL (70-100); LIPASE 191 U/L (73-393); NT-PRO BNP 27 PG/ML (<125); SODIUM LEVEL 137 MEQ/L (136-145); TOTAL PROTEIN 7.3 GM/DL (6.4-8.2)
[2022-04-25] MEDS ORDERED: NS 1,000 ML IV ONE (11:20)
[2022-04-25] MEDS ORDERED: ISOVUE-370 76% 100ML VIAL As Ordered ONE (11:23)
[2022-04-25 12:45] LABS: CK-MB VALUE MASS < 1.0 NG/ML (<3.6); CPK CREATINE PHOSPHOKINASE 87 U/L (26-192); MB/CK RELATIVE INDEX 1.15 (< OR =4)
[2022-04-25 13:29] LABS: RSV AMPLIFICATION NEGATIVE (NEGATIVE)
[2022-04-25 15:10] LABS: AMPHETAMINES LEVEL URINE NEGATIVE (NEGATIVE); BARBITURATES URINE NEGATIVE (NEGATIVE); BENZODIAZEPINES URINE NEGATIVE (NEGATIVE); CANNABINOIDS URINE POSITIVE (NEGATIVE); COCAINE METABOLITE URINE NEGATIVE (NEGATIVE); METHADONE URINE NEGATIVE (NEGATIVE); OPIATES URINE NEGATIVE (NEGATIVE); PHENCYCLIDINE URINE NEGATIVE (NEGATIVE)
[2022-04-25 15:21] LABS: ACETAMINOPHEN LEVEL < 2.0 UG/ML (10.0-30.0); ETHYL ALCOHOL (ETHANOL) < 0.003 % (0.000-0.010); SALICYLATE LEVEL 2.2 MG/DL (5.0-30.0)
[2022-04-25] MEDS ORDERED: IBUPROFEN 400MG TAB PO PRN (15:30)
[2022-04-25] MEDS ORDERED: MAALOX 30 ML SUSP *UDC PO PRN (15:30)
[2022-04-25] MEDS ORDERED: MOM 30ML SUSPENSION UDC PO PRN (15:30)
[2022-04-25] MEDS ORDERED: [UNRECOGNIZED DRUG - REMARK] (16:29)
[2022-04-25] MEDS ORDERED: HOME MED LIST COMPLETE! XX SCH (16:30)
[2022-04-25 16:41] VITALS: BP 133/83
[2022-04-25] MEDS ORDERED: ALBUTEROL 90 MCG/ACT 8GM HFA INHALER INH PRN (17:15)
[2022-04-26 06:34] VITALS: BP 118/73
[2022-04-26] MEDS: VENLAFAXINE **XR** 37.5 MG CAPSULE PO SCH (11:28)
[2022-04-26] MEDS: NICOTINE 14 MG/24 HR TRANSDERMAL TD SCH (11:47)
[2022-04-26] MEDS ORDERED: SUMAtriptan SUCCINATE 25 MG TAB PO PRN (12:50)
[2022-04-26] MEDS: LEVOTHYROXINE 150MCG TABLET (0.15MG) PO SCH (13:54)
[2022-04-26 16:21] VITALS: BP 128/84
[2022-04-26] MEDS: traZODone 50 MG TAB PO PRN (20:06)
[2022-04-26] MEDS: EXCEDRIN MIGRAINE TABLET PO PRN (20:06)
[2022-04-27] MEDS: LEVOTHYROXINE 150MCG TABLET (0.15MG) PO SCH (05:49)
[2022-04-27 06:22] VITALS: BP 132/85
[2022-04-27] MEDS: NICOTINE 14 MG/24 HR TRANSDERMAL TD SCH (07:28)
[2022-04-27] MEDS: VENLAFAXINE **XR** 37.5 MG CAPSULE PO SCH (07:29)
[2022-04-27] MEDS: EXCEDRIN MIGRAINE TABLET PO PRN (10:25)
[2022-04-27 16:33] VITALS: BP 137/69
[2022-04-27] MEDS: traZODone 50 MG TAB PO PRN (19:39)
[2022-04-28] MEDS: LEVOTHYROXINE 150MCG TABLET (0.15MG) PO SCH (05:35)
[2022-04-28 06:14] VITALS: BP 118/76
[2022-04-28] MEDS: NICOTINE 14 MG/24 HR TRANSDERMAL TD SCH (08:30)
[2022-04-28] MEDS: VENLAFAXINE **XR** 37.5 MG CAPSULE PO SCH (08:30)
[2022-04-28 18:29] VITALS: BP 123/78
[2022-04-28] MEDS: traZODone 50 MG TAB PO PRN (20:13)
[2022-04-29] MEDS: LEVOTHYROXINE 150MCG TABLET (0.15MG) PO SCH (05:37)
[2022-04-29 06:17] VITALS: BP 114/63
[2022-04-29] MEDS: VENLAFAXINE **XR** 37.5 MG CAPSULE PO SCH (08:11)
[2022-04-29] MEDS: NICOTINE 14 MG/24 HR TRANSDERMAL TD SCH (08:11)
[2022-04-29] MEDS ORDERED: VENL75CA47 PO (10:09)
[2022-04-29] MEDS ORDERED: TRAZ-252 PO (10:09)
[2022-04-29] MEDS ORDERED: LEVO150T7 PO (10:09)
== END 2022-04-29 11:40 | disposition home or self-care (01) | DRG 751 ==
LOC: M ED 10:33 → M ED INP 15:28 → M PSY 17:42
PROVIDERS: ADMIT Psychiatry & Neurology Psychiatry; ATTEND Psychiatry & Neurology Psychiatry
DX: F33.1 Major depressive disorder, recurrent, moderate (principal); N17.9 Acute kidney failure, unspecified; F43.9 Reaction to severe stress, unspecified; F11.11 Opioid abuse, in remission; F17.200 Nicotine dependence, unspecified, uncomplicated; F16.10 Hallucinogen abuse, uncomplicated; G43.909 Migraine, unspecified, not intractable, without status migrainosus; E03.9 Hypothyroidism, unspecified; Z56.6 Other physical and mental strain related to work; Z79.82 Long term (current) use of aspirin; Z79.899 Other long term (current) drug therapy

== ENCOUNTER 2023-07-05 12:01 | Day surgery (SDC) | payer OTHER ==
[~2023-07-05] VITALS: Ht 170.2 cm; Wt 96.2 kg
[~2023-07-05 12:01] MED LIST changes: +BUSP15TA47 PO; +DROS1TAB6; +FLUT22IN; +KETOROLAC 60MG 2ML VIAL As Ordered ONE; +LEVO150T7 PO; +LIDOCAINE 2% 100MG/5ML SDV (FOR ANES.) As Ordered ONE; +MELA3TAB49 PO; +MIDAZOLAM INJ 2MG/2ML VIAL As Ordered ONE; +ONDANSETRON 4MG 2ML VIAL As Ordered ONE; +PERC5TAB12 PO; +ROCURONIUM BROMIDE 50MG/5ML VIAL As Ordered ONE; +VENL150C43 PO; +VENL75CA47 PO; +[UNRECOGNIZED DRUG - REMARK]; +dexmedeTOMIDine (4MCG/ML)200MCG/50ML BTL (PRECEDEX) As Ordered ONE; +fentaNYL 100 MCG/2 ML INJECTION As Ordered ONE; +propofoL 200 MG/20 ML VIAL As Ordered ONE
[2023-07-05] MEDS ORDERED: LR 1,000 ML IV SCH ×2 (12:20→16:20)
[2023-07-05] MEDS ORDERED: ceFAZolin SOD 2 GM in IV 1 EA IV ONE (12:35)
[2023-07-05 13:08] LABS: HEMATOCRIT 39.1 % (36.0-47.0); HEMOGLOBIN 12.6 g/dl (12.0-15.5); MEAN CORPUSCULAR HEMOGLOBIN 25.1 pg (27.0-33.0); MEAN CORPUSCULAR HGB CONC 32.2 g/dl (32.0-36.5); MEAN CORPUSCULAR VOLUME 77.9 fl (80.0-96.0); PLATELET COUNT, AUTOMATED 285 10^3/uL (150-450); RED BLOOD COUNT 5.02 10^6/uL (4.00-5.40); WHITE BLOOD COUNT 6.5 10^3/uL (4.0-10.0)
[2023-07-05 13:37] LABS: HCG, SERUM QUALITATIVE NEGATIVE (NEGATIVE)
[2023-07-05 13:39] LABS: BLOOD UREA NITROGEN 8 MG/DL (9-23); CALCIUM LEVEL 9.4 MG/DL (8.5-10.1); CARBON DIOXIDE LEVEL 28 MMOL/L (20-31); CHLORIDE LEVEL 107 MMOL/L (98-107); CREATININE FOR GFR 0.72 MG/DL (0.55-1.30); GLOMERULAR FILTRATION RATE > 60.0 (>60); GLUCOSE, FASTING 92 MG/DL (60-100); POTASSIUM SERUM 4.4 MMOL/L (3.5-5.1); SODIUM LEVEL 140 MMOL/L (136-145)
[2023-07-05] MEDS ORDERED: FLUORESCEIN 10% (100MG/ML) 5ML VIAL As Ordered ONE (13:55)
[2023-07-05] MEDS ORDERED: HYDROmorphone HCL 2MG/ML 1ML VIAL As Ordered ONE (14:28)
[2023-07-05] MEDS ORDERED: SUGAMMADEX SODIUM 500 MG/5 ML VIAL (BRIDION) As Ordered ONE (14:28)
[2023-07-05] MEDS ORDERED: ONDANSETRON 4MG 2ML VIAL As Ordered ONE (14:28)
[2023-07-05] MEDS ORDERED: ROCURONIUM BROMIDE 50MG/5ML VIAL As Ordered ONE (14:28)
[2023-07-05] MEDS ORDERED: KETOROLAC 60MG 2ML VIAL As Ordered ONE (14:28)
[2023-07-05] MEDS ORDERED: propofoL 200 MG/20 ML VIAL As Ordered ONE (14:28)
[2023-07-05] MEDS ORDERED: LIDOCAINE 2% 100MG/5ML SDV (FOR ANES.) As Ordered ONE (14:28)
[2023-07-05] MEDS ORDERED: MIDAZOLAM INJ 2MG/2ML VIAL As Ordered ONE (14:28)
[2023-07-05] MEDS ORDERED: fentaNYL 100 MCG/2 ML INJECTION As Ordered ONE (14:28)
[2023-07-05] MEDS ORDERED: GLYCOPYRROLATE INJ 0.2 MG/ML 2 ML VIAL As Ordered ONE (14:46)
[2023-07-05] MEDS ORDERED: LABETALOL 100MG/20ML VIAL As Ordered ONE (15:14)
[2023-07-05] MEDS ORDERED: fentaNYL 100 MCG/2 ML INJECTION IV PRN (15:35)
[2023-07-05] MEDS ORDERED: ONDANSETRON 4MG 2ML VIAL IV PRN (15:35)
[2023-07-05] MEDS: MORPHINE 2 MG/ML 1ML VIAL IV PRN ×2 (15:54→16:13)
[2023-07-05] MEDS: oxyCODONE 5MG TAB PO PRN ×2 (15:54→17:35)
[2023-07-05] MEDS ORDERED: PERCOCET 5MG/325MG TAB PO PRN (16:25)
[2023-07-05 18:35] VITALS: BP 129/80; TEMP 97.5; O2SAT 94
[2023-07-05] MEDS ORDERED: IBUPROFEN 800 MG TAB PO SCH (20:00)
[2023-07-05] MEDS ORDERED: SIMETHICONE 80MG CHEW TAB PO SCH (20:00)
== END 2023-07-05 19:10 | disposition home or self-care (01) ==
LOC: M SDC 12:01
PROVIDERS: ATTEND Obstetrics & Gynecology
DX: N92.0 Excessive and frequent menstruation with regular cycle (principal); N80.03 Adenomyosis of the uterus; N94.6 Dysmenorrhea, unspecified; R10.2 Pelvic and perineal pain; K66.0 Peritoneal adhesions (postprocedural) (postinfection); E03.9 Hypothyroidism, unspecified; Z98.51 Tubal ligation status; Z79.890 Hormone replacement therapy; Z79.899 Other long term (current) drug therapy; F17.290 Nicotine dependence, other tobacco product, uncomplicated
CPT/HCPCS: 36415; 58571; 80048; 84703; 85027; 86850; 86900; 86901; 88307; J0665; J1100; J1170; J1885; J1920; J2250; J2405; J3010; S2900

== ENCOUNTER → 2024-08-02 | Outpatient (CLI) | payer OTHER ==
[~2024-08-02] MED LIST changes: -KETOROLAC 60MG 2ML VIAL As Ordered ONE; -LIDOCAINE 2% 100MG/5ML SDV (FOR ANES.) As Ordered ONE; -MIDAZOLAM INJ 2MG/2ML VIAL As Ordered ONE; -ONDANSETRON 4MG 2ML VIAL As Ordered ONE; -ROCURONIUM BROMIDE 50MG/5ML VIAL As Ordered ONE; -dexmedeTOMIDine (4MCG/ML)200MCG/50ML BTL (PRECEDEX) As Ordered ONE; -fentaNYL 100 MCG/2 ML INJECTION As Ordered ONE; -propofoL 200 MG/20 ML VIAL As Ordered ONE
== END ==
LOC: M WHC 13:19
PROVIDERS: ATTEND Physician Assistant
DX: R33.9 Retention of urine, unspecified (principal)

== ENCOUNTER → 2024-08-07 | Outpatient (REF) | payer OTHER | LOC: M SFHCADAM 10:27 | PROVIDERS: ATTEND Physician Assistant | DX: Z53.9 Procedure and treatment not carried out, unspecified reason (principal) ==

== ENCOUNTER → 2024-10-30 | Outpatient (REF) | payer OTHER ==
[~2024-10-30] MED LIST changes: -ESSE250T PO; +MAGN250T17 PO
[2024-10-30 13:46] LABS: HEMATOCRIT 42.2 % (36.0-47.0); HEMOGLOBIN 14.2 g/dl (12.0-15.5); MEAN CORPUSCULAR HEMOGLOBIN 28.1 pg (27.0-33.0); MEAN CORPUSCULAR HGB CONC 33.6 g/dl (32.0-36.5); MEAN CORPUSCULAR VOLUME 83.4 fl (80.0-96.0); PLATELET COUNT, AUTOMATED 276 10^3/uL (150-450); RED BLOOD COUNT 5.06 10^6/uL (4.00-5.40); WHITE BLOOD COUNT 4.8 10^3/uL (4.0-10.0)
[2024-10-30 13:55] LABS: ALBUMIN 4.3 G/DL (3.2-5.2); ALKALINE PHOSPHATASE 57 U/L (35-104); ALT/SGPT 11 U/L (7.0-40); AST/SGOT 12 U/L (<34); BILIRUBIN,TOTAL 0.5 MG/DL (0.3-1.2); BLOOD UREA NITROGEN 13 MG/DL (9-23); CALCIUM LEVEL 9.8 MG/DL (8.5-10.1); CARBON DIOXIDE LEVEL 31 MMOL/L (20-31); CHLORIDE LEVEL 105 MMOL/L (98-107); CHOLESTEROL LEVEL 184 MG/DL (<200); CHOLESTEROL RISK RATIO 3.35 (<5); CREATININE FOR GFR 0.79 MG/DL (0.55-1.30); GLOMERULAR FILTRATION RATE > 90.0 (>60); GLUCOSE, FASTING 102 MG/DL (60-100); HDL CHOLESTEROL 54.8 MG/DL (>40); LDL CHOLESTEROL 108.4 MG/DL (<100); NON-HDL-C 129.2 MG/DL; POTASSIUM SERUM 4.8 MMOL/L (3.5-5.1); SODIUM LEVEL 142 MMOL/L (136-145); TOTAL PROTEIN 7.2 G/DL (5.7-8.2); TRIGLYCERIDES LEVEL 104 MG/DL (<150)
[2024-10-30 13:56] LABS: FREE T4 1.95 NG/DL (0.89-1.76)
[2024-10-30 13:58] LABS: THYROID STIMULATING HORMONE 0.067 uIU/ML (0.55-4.78); TOTAL 25(OH) VITAMIN D 65.8 NG/ML (20.0-100.0)
[2024-10-30 14:00] LABS: HEMOGLOBIN A1c 4.6 % (4.0-6.0)
== END ==
LOC: M SFHCADAM 09:28
PROVIDERS: ATTEND Physician Assistant
DX: Z13.220 Encounter for screening for lipoid disorders (principal); R33.9 Retention of urine, unspecified; G43.109 Migraine with aura, not intractable, without status migrainosus; E03.9 Hypothyroidism, unspecified; F33.41 Major depressive disorder, recurrent, in partial remission

== ENCOUNTER → 2024-12-31 | Outpatient (CLI) | payer OTHER | LOC: M RAD 12:42 | PROVIDERS: ATTEND Physician Assistant | DX: R60.0 Localized edema (principal) ==

== ENCOUNTER 2025-02-13 13:12 | Outpatient (RCR) | payer OTHER ==
[~2025-02-13 13:12] MED LIST changes: -IBUP-1022 PO; +IBUP600T42 PO
== END 2025-02-16 ==
LOC: M PT 13:12
PROVIDERS: ATTEND Physician Assistant
DX: M54.89 Other dorsalgia (principal); M62.830 Muscle spasm of back

== ENCOUNTER 2025-03-13 12:45 | Outpatient (RCR) | payer OTHER | END 2025-03-18 | LOC: M PT 12:45 | PROVIDERS: ATTEND Physician Assistant | DX: M54.9 Dorsalgia, unspecified (principal) ==